=== PATIENT | female | born 1950 | race Caucasian/White ===

== ENCOUNTER → 2016-11-23 | Outpatient (CLI) | payer BC, OTHER ==
[~2016-11-23] MED LIST: AMIT10TA2 OR; ATEN100T OR; HYDR25TA6 OR; NAPR500T OR; SKEL800T5 OR; TRAM50TA2 OR; VASO20TA OR; VOLT1GEL TOP
--- NOTE | 2016-11-25 01:25 | ECWPNPC ---
PATIENT NAME: ALFONSO MAR : 1950 GENDER: FEMALE VISIT DATE: 11/23/2016 DISCHARGE DATE: 11/23/16 0956 VISIT LOCKED DATE TIME: PHYSICIAN: INGRID LANDRY RESOURCE: INGRID LANDRY REASON FOR APPOINTMENT 1. F/U LEFT SHOULDER HISTORY OF PRESENT ILLNESS HISTORY OF PRESENT ILLNESS: PAIN THE PATIENT DESCRIBES THE PAIN... FALL RISK SCREENING: SCREENING :NO FALLS IN THE PAST YEAR TODAY'S VISIT: PAIN LOCATED NECK L>R.PAIN AGGREVATED BY LIFTING AND PROLONGED SITTING. FINDS CURRENT MEDICATION HELPFUL W OUT SIDE EFFECTS.VAS 3/10.CURRENT MEDICINE FOR CHRONIC PAIN IS SKELAXIN 800MG TID,AMITRIPTYLINE 25MG AT HS AND TRAMADOL 50MG ONE TAB Q4HR PRN W MDD6.FINDS CURRENT REGIMEN EFFECTIVE AT REDUCING PAIN AND KEEPING HE COMFORTABLE.DENIES SIDE EFFECTS. CURRENT MEDICATIONS TAKING HYDROCHLOROTHIAZIDE 25 MG TABLET 1 TABLET ORALLY ONCE A DAY TAKING ATENOLOL 50 50MG TABLET ORAL BID TAKING TRAMADOL HCL 50 MG TABLET 1 TABLET NEEDED ORALLY EVERY 6 HRSMDD4 TAKING METAXALONE 800 MG TABLET 1 TABLET ORALLY THREE TIMES A DAY TAKING AMITRIPTYLINE HCL 25 MG TABLET 1 TABLET ORALLY QHS TAKING VITAMIN D 1000 UNIT TABLET 5 TABLET ORALLY ONCE A DAY MEDICATION LIST REVIEWED AND RECONCILED WITH THE PATIENT ALLERGIES LIDOCAINE: RAPID HEARTBEAT: SIDE EFFECTS LYRICA: MENTAL CONFUSION: SIDE EFFECTS SOCIAL HISTORY GENERAL: TOBACCO USE ARE YOU A:NONSMOKER LEARNING BARRIERS / SPECIAL NEEDS ORIENTED TO PLAN OF CARE: PATIENT, PAIN MANAGEMENT PATIENT, ORIENTED TO PLAN OF CARE: PATIENT, PAIN MANAGEMENT PATIENT. NEW PATIENT PAIN DIARY TODAY'S VISITNOTES FROM 0-10, WHAT LEVEL IS YOUR PAIN TODAY?0 PAIN CLINIC PFS, CLERGY, PUBLIC HEALTH REFERRALS PFS REFERRAL NEEDED?NO CLERGY REFERRAL NEEDED?NO PUBLIC HEALTH REFERRAL NEEDED?NO WAS THE PROVIDER NOTIFIED OF ANY PERTINENT INFO?NO PFS REFERRAL NEEDED?NO CLERGY REFERRAL NEEDED?NO PUBLIC HEALTH REFERRAL NEEDED?NO WAS THE PROVIDER NOTIFIED OF ANY PERTINENT INFO?NO REVIEW OF SYSTEMS CONSTITUTIONAL: ANY CHANGE IN YOUR MEDICAL CONDITION? NO . CHILLS NO . FEVER NO . INFECTION: DO YOU HAVE NEW INFECTIONS? NO . DO YOU HAVE HISTORY OF MRSA? NO . MUSCULOSKELETAL: ANY NEW PATTERNS OF PAIN OR NUMBNESS? NO . GASTROENTEROLOGY: ANY NEW CHANGE IN BOWEL CONTROL? NO . GENITOURINARY: ANY NEW CHANGE IN BLADDER CONTROL? NO . IS THERE A CHANCE YOU COULD BE ? NO . HEMATOLOGY/LYMPH: DO YOU TAKE ANY BLOOD THINNERS? (FOR EXAMPLE- COUMADIN, PLAVIX, AGGRENOX, PLATEL, PRADAXA, OR XARELTO) NO . WHEN WAS YOUR LAST DOSE? DATE: TIME: . NEUROLOGY: HAVE YOU FALLEN IN THE PAST 6 MONTHS? NO . ANY NEW EXTREMITY NUMBNESS OR WEAKNESS? NO . CARDIOLOGY: DO YOU HAVE A PACEMAKER OR DEFIBRILLATOR? NO . RESPIRATORY: HAVE YOU BEEN SICK IN THE PAST WEEK? NO . FEVER NO . FLU LIKE SYMPTOMS? NO . COUGH NO . INTEGUMENTARY: DO YOU HAVE ANY RASHES OR OPEN SORES? NO . ALLERGIC/IMMUNO: ARE YOU ALLERGIC TO SHELLFISH OR IV DYE? NO . ANY NEW ALLERGIES? NO . PSYCHIATRIC: DO YOU HAVE THOUGHTS OF HURTING YOURSELF OR SOMEONE ELSE? NO . ARE YOU ABUSED, NEGLECTED, OR IN AN UNSAFE ENVIRONMENT? NO . ENDOCRINOLOGY: ARE YOU DIABETIC? NO . OTHER: DO YOU NEED ANY PRESCRIPTIONS? NO . IF YES, PLEASE LIST: ____ . ANY NEW PROBLEMS WITH YOUR MEDICATIONS? NO . WHEN DID YOU LAST EAT? ____ . WHEN DID YOU LAST DRINK? ____ . WHAT DID YOU LAST DRINK? ____ . NAME OF PERSON DRIVING YOU HOME? ____ . DO YOU HAVE ANY OTHER QUESTIONS OR CONCERNS NO . REVIEWED BY: PROVIDER: INGRID RESENDIZ . VITAL SIGNS WT 157 LBS, HT 64 IN, BMI 26.95 INDEX, BP 132/73 MM HG, HR 61 /MIN, RR 16 /MIN, TEMP 97.3 F, OXYGEN SAT % 98, NA INITIALS TL 0901, REVIEWED BY: KG. EXAMINATION GENERAL EXAMINATION: LUNGS:LUNG SOUNDS ARE CLEAR. HEART:HEART RATE REGULAR. MUSCULOSKELETAL:*. CERVICAL SPINE: PALPATION:NON-TENDER. RANGE OF MOTION:FULL RANGE OF MOTION. SENSORY EXAM UPPER EXTREMITIES:NORMAL BILATERALLY. ASSESSMENTS CERVICALGIA - M54.2 (PRIMARY) POST LAMINECTOMY SYNDROME - M96.1 TREATMENT CERVICALGIA CONTINUE TRAMADOL HCL TABLET, 50 MG, 1 TABLET NEEDED, ORALLY, EVERY 6 HRSMDD4 CONTINUE METAXALONE TABLET, 800 MG, 1 TABLET, ORALLY, THREE TIMES A DAY REFILL AMITRIPTYLINE HCL TABLET, 25 MG, 1 TABLET, ORALLY, QHS, 90 DAYS, 90, REFILLS 1 PROCEDURE CODES FA211 ESTABILISHED PATIENT [facility] CHARGE FOLLOW UP 3 MONTHS ELECTRONICALLY SIGNED BY ASTRID ARIZA ON 11/23/2016 AT 10:02 AM EST DISCLAIMER : THIS IS A VISIT SUMMARY EXTRACTED FROM THE [employer] CHART. IT IS NOT A COPY OF THE [employer] PROGRESS NOTE. PAULY
== END ==
LOC: M PAIN 09:20
PROVIDERS: ATTEND Nurse Practitioner Family
DX: M54.2 Cervicalgia (principal); M96.1 Postlaminectomy syndrome, not elsewhere classified; Z79.891 Long term (current) use of opiate analgesic; Z79.899 Other long term (current) drug therapy; Z88.8 Allergy status to other drugs, medicaments and biological substances

== ENCOUNTER → 2017-03-01 | Outpatient (CLI) | payer BC, OTHER | LOC: M PAIN 09:00 | PROVIDERS: ATTEND Nurse Practitioner Family | DX: G89.29 Other chronic pain (principal); M54.2 Cervicalgia; M96.1 Postlaminectomy syndrome, not elsewhere classified; I10 Essential (primary) hypertension; Z88.8 Allergy status to other drugs, medicaments and biological substances; Z79.899 Other long term (current) drug therapy ==

== ENCOUNTER → 2017-06-08 | Outpatient (CLI) | payer BC, OTHER ==
--- NOTE | 2017-06-12 23:32 | ECWPNPC ---
PATIENT NAME: ALFONSO MAR : 1950 GENDER: FEMALE VISIT DATE: 06/08/2017 DISCHARGE DATE: 06/08/17928 VISIT LOCKED DATE TIME: PHYSICIAN: INGRID LANDRY RESOURCE: INGRID LANDRY REASON FOR APPOINTMENT 1. BACK/NECK HISTORY OF PRESENT ILLNESS HISTORY OF PRESENT ILLNESS: PAIN THE PATIENT DESCRIBES THE PAIN... FALL RISK SCREENING: SCREENING :NO FALLS IN THE PAST YEAR TODAY'S VISIT: PAIN LOCATED NECK L>R.PAIN AGGREVATED BY LIFTING AND PROLONGED SITTING. FINDS CURRENT MEDICATION HELPFUL W OUT SIDE EFFECTS.VAS 3/10.CURRENT MEDICINE FOR CHRONIC PAIN IS SKELAXIN 800MG TID,AMITRIPTYLINE 25MG AT HS AND TRAMADOL 50MG ONE TAB Q4HR PRN W MDD6.USUALLY USING 3-4 TAB.TRAMADOL PER DAY. CURRENT MEDICATIONS TAKING HYDROCHLOROTHIAZIDE 25 MG TABLET 1 TABLET ORALLY ONCE A DAY TAKING ATENOLOL 50 50MG TABLET ORAL BID TAKING VITAMIN D 1000 UNIT TABLET 1 TAB ORALLY ONCE A DAY TAKING METAXALONE 800 MG TABLET 1 TABLET ORALLY THREE TIMES A DAY TAKING AMITRIPTYLINE HCL 25 MG TABLET 1 TABLET ORALLY QHS TAKING TRAMADOL HCL 50 MG TABLET 1 TABLET NEEDED ORALLY EVERY 6 HRSMDD4 MEDICATION LIST REVIEWED AND RECONCILED WITH THE PATIENT PAST MEDICAL HISTORY HTN LEFT SHOULDER PAIN BACK PAIN ALLERGIES LIDOCAINE: RAPID HEARTBEAT: SIDE EFFECTS LYRICA: MENTAL CONFUSION: SIDE EFFECTS SOCIAL HISTORY GENERAL: SABIANISM [id number] [facility] PFS, CLERGY, PUBLIC HEALTH REFERRALS PFS REFERRAL NEEDED?NO CLERGY REFERRAL NEEDED?NO PUBLIC HEALTH REFERRAL NEEDED?NO WAS THE PROVIDER NOTIFIED OF ANY PERTINENT INFO?NO HAS THE PATIENT BEEN EDUCATED REGARDING HIS/HER PLAN OF CARE?YES HAS THE PATIENT BEEN EDUCATED REGARDING PAIN, THE RISK FOR PAIN, THE IMPORTANCE OF EFFECTIVE PAIN MANAGEMENT, AND THE PAIN ASSESSMENT PROCESS?YES PATIENT: ____. ADVANCE DIRECTIVES HEALTH CARE PROXY?NO WOULD YOU LIKE MORE INFORMATION?NO DO YOU HAVE A DNR?NO WOULD YOU LIKE MORE INFORMATION?NO LIVING WILL?NO WOULD YOU LIKE MORE INFORMATION?NO POWER OF FOREST LOGISTICS MANAGER?YES NAME OF POA? CARLOS WASHINGTON PHONE # OF POA? [phone] DO YOU HAVE A COPY WITH YOU?NO HAVE YOU HAD A COPY OF ANY ADVANCED DIRECTIVE (LISTED ABOVE) ON A PREVIOUS MEDICAL RECORDS AT [facility]?NO REVIEW OF SYSTEMS REVIEWED BY: PROVIDER: INGRID RESENDIZ . CONSTITUTIONAL: ANY CHANGE IN YOUR MEDICAL CONDITION? NO . CHILLS NO . FEVER NO . INFECTION: DO YOU HAVE NEW INFECTIONS? NO . DO YOU HAVE HISTORY OF MRSA? NO . MUSCULOSKELETAL: ANY NEW PATTERNS OF PAIN OR NUMBNESS? NO . GASTROENTEROLOGY: ANY NEW CHANGE IN BOWEL CONTROL? NO . GENITOURINARY: ANY NEW CHANGE IN BLADDER CONTROL? NO . IS THERE A CHANCE YOU COULD BE ? NO . HEMATOLOGY/LYMPH: DO YOU TAKE ANY BLOOD THINNERS? (FOR EXAMPLE- COUMADIN, PLAVIX, AGGRENOX, PLATEL, PRADAXA, OR XARELTO) NO . WHEN WAS YOUR LAST DOSE? DATE: TIME: . NEUROLOGY: HAVE YOU FALLEN IN THE PAST 6 MONTHS? NO . ANY NEW EXTREMITY NUMBNESS OR WEAKNESS? NO . CARDIOLOGY: DO YOU HAVE A PACEMAKER OR DEFIBRILLATOR? NO . RESPIRATORY: HAVE YOU BEEN SICK IN THE PAST WEEK? NO . FEVER NO . FLU LIKE SYMPTOMS? NO . COUGH NO . INTEGUMENTARY: DO YOU HAVE ANY RASHES OR OPEN SORES? NO . ALLERGIC/IMMUNO: ARE YOU ALLERGIC TO SHELLFISH OR IV DYE? NO . ANY NEW ALLERGIES? NO . PSYCHIATRIC: DO YOU HAVE THOUGHTS OF HURTING YOURSELF OR SOMEONE ELSE? NO . ARE YOU ABUSED, NEGLECTED, OR IN AN UNSAFE ENVIRONMENT? NO . ENDOCRINOLOGY: ARE YOU DIABETIC? NO . OTHER: DO YOU NEED ANY PRESCRIPTIONS? YES . IF YES, PLEASE LIST: SKELAXIN . ANY NEW PROBLEMS WITH YOUR MEDICATIONS? NO . WHEN DID YOU LAST EAT? ____ . WHEN DID YOU LAST DRINK? ____ . WHAT DID YOU LAST DRINK? ____ . NAME OF PERSON DRIVING YOU HOME? ____ . DO YOU HAVE ANY OTHER QUESTIONS OR CONCERNS NO . VITAL SIGNS WT 160 LBS, HT 64 IN, BMI 27.46 INDEX, BP 133/69 MM HG, HR 57 /MIN, RR 16 /MIN, TEMP 97.8 F, OXYGEN SAT % 96%, NA INITIALS [id number], REVIEWED BY: CS. EXAMINATION GENERAL EXAMINATION: LUNGS:LUNG SOUNDS ARE CLEAR. HEART:HEART RATE REGULAR. MUSCULOSKELETAL:*. CERVICAL SPINE: PALPATION:NON-TENDER. RANGE OF MOTION:FULL RANGE OF MOTION. SENSORY EXAM UPPER EXTREMITIES:NORMAL BILATERALLY. ASSESSMENTS CERVICALGIA - M54.2 (PRIMARY) POST LAMINECTOMY SYNDROME - M96.1 TREATMENT CERVICALGIA REFILL METAXALONE TABLET, 800 MG, 1 TABLET, ORALLY, THREE TIMES A DAY, 30 DAY(S), 90 TABLET, REFILLS 2 CONTINUE AMITRIPTYLINE HCL TABLET, 25 MG, 1 TABLET, ORALLY, QHS CONTINUE TRAMADOL HCL TABLET, 50 MG, 1 TABLET NEEDED, ORALLY, EVERY 6 HRSMDD4 PROCEDURE CODES FA211 ESTABILISHED PATIENT [facility] CHARGE DISPOSITION & COMMUNICATION FOLLOW UP 3 MONTHS ELECTRONICALLY SIGNED BY ASTRID ARIZA ON 06/08/2017 AT 01:31 PM EDT DISCLAIMER : THIS IS A VISIT SUMMARY EXTRACTED FROM THE [employer] CHART. IT IS NOT A COPY OF THE [employer] PROGRESS NOTE. PAULY
== END ==
LOC: M PAIN 09:00
PROVIDERS: ATTEND Nurse Practitioner Family
DX: M96.1 Postlaminectomy syndrome, not elsewhere classified (principal); M54.2 Cervicalgia; I10 Essential (primary) hypertension; Z88.8 Allergy status to other drugs, medicaments and biological substances; Z79.899 Other long term (current) drug therapy

== ENCOUNTER → 2017-12-09 | Outpatient (CLI) | payer MEDICARE, BC, OTHER | LOC: M PAIN 09:30 | DX: G89.29 Other chronic pain (principal); M54.2 Cervicalgia; M96.1 Postlaminectomy syndrome, not elsewhere classified; I10 Essential (primary) hypertension; M25.512 Pain in left shoulder; Z87.891 Personal history of nicotine dependence; Z79.899 Other long term (current) drug therapy; Z88.8 Allergy status to other drugs, medicaments and biological substances | CPT/HCPCS: G0463 ==

== ENCOUNTER → 2018-03-08 | Outpatient (CLI) | payer MEDICARE, BC, OTHER | LOC: M PAIN 09:00 | DX: G89.29 Other chronic pain (principal); M54.2 Cervicalgia; M96.1 Postlaminectomy syndrome, not elsewhere classified; I10 Essential (primary) hypertension; M25.511 Pain in right shoulder; Z98.1 Arthrodesis status; Z88.6 Allergy status to analgesic agent | CPT/HCPCS: G0463 ==

== ENCOUNTER → 2018-06-08 | Outpatient (CLI) | payer MEDICARE, BC, OTHER | LOC: M PAIN 09:00 | DX: M54.2 Cervicalgia (principal); M96.1 Postlaminectomy syndrome, not elsewhere classified; I10 Essential (primary) hypertension; Z79.899 Other long term (current) drug therapy; Z88.8 Allergy status to other drugs, medicaments and biological substances | CPT/HCPCS: G0463 ==

== ENCOUNTER → 2018-09-08 | Outpatient (CLI) | payer MEDICARE, BC, OTHER | LOC: M PAIN 09:00 | DX: M54.2 Cervicalgia (principal); M96.1 Postlaminectomy syndrome, not elsewhere classified; I10 Essential (primary) hypertension; Z79.899 Other long term (current) drug therapy; Z88.8 Allergy status to other drugs, medicaments and biological substances | CPT/HCPCS: G0463 ==

== ENCOUNTER → 2019-02-08 | Outpatient (CLI) | payer MEDICARE, BC, OTHER ==
--- NOTE | 2019-02-23 00:42 | ECWPNPC ---
PATIENT NAME: ALFONSO MAR : 1950 GENDER: FEMALE VISIT DATE: 02/08/2019 DISCHARGE DATE: 02/08/19 1144 VISIT LOCKED DATE TIME: PHYSICIAN: INGRID LANDRY RESOURCE: INGRID LANDRY REASON FOR APPOINTMENT 1. NECK/BACK HISTORY OF PRESENT ILLNESS HISTORY OF PRESENT ILLNESS: PAIN THE PATIENT DESCRIBES THE PAIN... FALL RISK SCREENING: SCREENING :NO FALLS REPORTED IN THE LAST YEAR TODAY'S VISIT: PAIN LOCATED NECK L>R.PAIN AGGREVATED BY LIFTING AND PROLONGED SITTING. FINDS CURRENT MEDICATION HELPFUL W OUT SIDE EFFECTS.VAS 2/10.CURRENT MEDICINE FOR CHRONIC PAIN IS SKELAXIN 800MG TID,AMITRIPTYLINE 25MG AT HS AND TRAMADOL 50MG ONE TAB Q4HR PRN W MDD6.USUALLY USING 3-4 TAB.TRAMADOL PER DAY. CURRENT MEDICATIONS TAKING HYDROCHLOROTHIAZIDE 25 MG TABLET 1 TABLET ORALLY ONCE A DAY TAKING ATENOLOL 50 50MG TABLET ORAL BID TAKING VITAMIN D 1000 UNIT TABLET TAKES 5000 UNITS ORALLY ONCE A DAY TAKING BIOTIN 5 MG CAPSULE 1 CAPSULE ORALLY ONCE A DAY TAKING METAXALONE 800 MG TABLET 1 TABLET ORALLY THREE TIMES A DAY TAKING AMITRIPTYLINE HCL 50 MG TABLET 1 TABLET ORALLY QHS TAKING TRAMADOL HCL 50 MG TABLET 1 TABLET NEEDED ORALLY EVERY 6 HRSMDD4 90 DAY SUPPLY CATD CHRONIC PAIN MEDICATION LIST REVIEWED AND RECONCILED WITH THE PATIENT PAST MEDICAL HISTORY HTN LEFT SHOULDER PAIN BACK PAIN ALLERGIES LIDOCAINE: RAPID HEARTBEAT - SIDE EFFECTS LYRICA: MENTAL CONFUSION - SIDE EFFECTS SURGICAL HISTORY SPINAL FUSION WRIST SURGERY - RELEASE 09/2018 FAMILY HISTORY FATHER: , DIAGNOSED WITH STROKE MOTHER: , OTHER 1 BROTHER(S) , 4 SISTER(S) . 1 SON(S) , 1 DAUGHTER(S) - HEALTHY. MOTHER - HIP REPLACEMENTSISTER - BREAST CANCER. SOCIAL HISTORY GENERAL: TOBACCO USE ARE YOU A:NONSMOKER LATEX QUESTIONNAIRE LATEX ALLERGY : HAVE YOU EVER DEVELOPED ANY TYPE OF REACTION AFTER HANDLING LATEX PRODUCTS SUCH RUBBER GLOVES, CONDOMS, DIAPHRAGMS, BALLOONS, SOCKS, OR UNDERWEAR?NO LATEX ALLERGY : HAVE YOU EVER DEVELOPED ANY TYPE OF REACTION DURING OR AFTER DENTAL APPOINTMENT, VAGINAL/RECTAL EXAMINATION, SURGICAL PROCEDURE, OR ANY OTHER EXPOSURE?NO LATEX RISK : HAVE YOU EVER HAD ANY DIFFICULTY BREATHING OR HIVES AFTER EATING OR HANDLING ANY FRUITS, OR VEGETABLES; SUCH KIWI, BANANAS, STONE FRUITS, OR CHESTNUTSNO LATEX RISK : DO YOU HAVE A PREVIOUS PERSONAL HISTORY OF MORE THAN NINE SURGERIES, SPINA BIFIDA, OR REPEATED CATHERTIZATIONS? NO LATEX RISK : ARE YOU FREQUENTLY EXPOSED TO LATEX PRODUCTS IN YOUR OCCUPATION?NO DATE ASKED : 02/08/2019 ALCOHOL SCREENING DID YOU HAVE A DRINK CONTAINING ALCOHOL IN THE PAST YEAR?YES HOW OFTEN DID YOU HAVE A DRINK CONTAINING ALCOHOL IN THE PAST YEAR?MONTHLY OR LESS (1 POINT) HOW MANY DRINKS DID YOU HAVE ON A TYPICAL DAY WHEN YOU WERE DRINKING IN THE PAST YEAR?1 OR 2 (0 POINTS) HOW OFTEN DID YOU HAVE SIX OR MORE DRINKS ON ONE OCCASION IN THE PAST YEAR?NEVER (0 POINTS) POINTS1 INTERPRETATIONNEGATIVE RECREATIONAL DRUG USE DRUG USE?NO CAODAISM [id number] [employer]ITH LANGUAGE LANGUAGES SPOKEN:BULGARIAN LEARNING BARRIERS / SPECIAL NEEDS CHANGE FROM LAST VISIT?NO BARRIERS TO LEARNING?NO HEARING IMPAIRED?NO VISION IMPAIRED?YES :CORRECTIVE LENSES COGNITIVELY IMPAIRED?NO READINESS TO LEARN?YES LEARNING PREFERENCES?NO LEARNING CAPABILITIES PRESENT?YES EMOTIONAL BARRIERS?NO SPECIAL DEVICES?NO BODY AND FRAME MAN NEEDED?NO OCCUPATION: RETIRED. DIET: REGULAR. EXERCISE: TRIES TO BE ACTIVE.. PAIN CLINIC PFS, CLERGY, PUBLIC HEALTH REFERRALS PFS REFERRAL NEEDED?NO CLERGY REFERRAL NEEDED?NO PUBLIC HEALTH REFERRAL NEEDED?NO WAS THE PROVIDER NOTIFIED OF ANY PERTINENT INFO?NO HAS THE PATIENT BEEN EDUCATED REGARDING HIS/HER PLAN OF CARE?YES HAS THE PATIENT BEEN EDUCATED REGARDING PAIN, THE RISK FOR PAIN, THE IMPORTANCE OF EFFECTIVE PAIN MANAGEMENT, AND THE PAIN ASSESSMENT PROCESS?YES ADVANCE DIRECTIVE ADVANCE DIRECTIVE DISCUSSED WITH PATIENT:YES HCP - CARLOS WASHINGTON (DAUGHTER) REVIEWED WITH PT 09/08/18 5432 BVREVIEWED WITH PATIENT 02/08/19 4502 JS. HOSPITALIZATION/MAJOR DIAGNOSTIC PROCEDURE SURGERY RELATED REVIEW OF SYSTEMS REVIEWED BY: PROVIDER: INGRID RESENDIZ . CONSTITUTIONAL: ANY CHANGE IN YOUR MEDICAL CONDITION? NO . CHILLS NO . FEVER NO . INFECTION: DO YOU HAVE NEW INFECTIONS? NO . DO YOU HAVE HISTORY OF MRSA? NO . MUSCULOSKELETAL: ANY NEW PATTERNS OF PAIN OR NUMBNESS? NO . GASTROENTEROLOGY: ANY NEW CHANGE IN BOWEL CONTROL? NO . GENITOURINARY: ANY NEW CHANGE IN BLADDER CONTROL? NO . IS THERE A CHANCE YOU COULD BE ? NO . HEMATOLOGY/LYMPH: DO YOU TAKE ANY BLOOD THINNERS? (FOR EXAMPLE- COUMADIN, PLAVIX, AGGRENOX, PLATEL, PRADAXA, OR XARELTO) NO . WHEN WAS YOUR LAST DOSE? DATE: TIME: . NEUROLOGY: HAVE YOU FALLEN IN THE PAST 12 MONTHS? YES, STATES FALL IN DECEMBER, SLIPPED ON THE ICE, FELL ON KNEES, KNEES STILL SORE. STATES NO ED VISIT, NO IMAGING . ANY NEW EXTREMITY NUMBNESS OR WEAKNESS? NO . CARDIOLOGY: DO YOU HAVE A PACEMAKER OR DEFIBRILLATOR? NO . RESPIRATORY: HAVE YOU BEEN SICK IN THE PAST WEEK? NO . FEVER NO . FLU LIKE SYMPTOMS? NO . COUGH NO . INTEGUMENTARY: DO YOU HAVE ANY RASHES OR OPEN SORES? NO . ALLERGIC/IMMUNO: ARE YOU ALLERGIC TO IV DYE? NO . ANY NEW ALLERGIES? NO . PSYCHIATRIC: DO YOU HAVE THOUGHTS OF HURTING YOURSELF OR SOMEONE ELSE? NO . ARE YOU ABUSED, NEGLECTED, OR IN AN UNSAFE ENVIRONMENT? NO . ENDOCRINOLOGY: ARE YOU DIABETIC? NO . OTHER: DO YOU NEED ANY PRESCRIPTIONS? YES . IF YES, PLEASE LIST: ____METAXALONE . ANY NEW PROBLEMS WITH YOUR MEDICATIONS? NO . WHEN DID YOU LAST EAT? ____ . WHEN DID YOU LAST DRINK? ____ . WHAT DID YOU LAST DRINK? ____ . NAME OF PERSON DRIVING YOU HOME? ____ . DO YOU HAVE ANY OTHER QUESTIONS OR CONCERNS NO . VITAL SIGNS WT 174.0 LBS, HT 64 IN, BMI 29.86 INDEX, BP 119/66 MM HG, HR 65 /MIN, RR 18 /MIN, TEMP 97.5 F, OXYGEN SAT % 93%, SAFE IN ENV? (Y/N) YES, NA INITIALS AW 1051, REVIEWED BY: DEBBIE. EXAMINATION GENERAL EXAMINATION: LUNGS:LUNG SOUNDS ARE CLEAR. HEART:HEART RATE REGULAR. MUSCULOSKELETAL:*. CERVICAL SPINE: PALPATION:NON-TENDER. RANGE OF MOTION:FULL RANGE OF MOTION. SENSORY EXAM UPPER EXTREMITIES:NORMAL BILATERALLY. ASSESSMENTS CERVICALGIA - M54.2 (PRIMARY) POST LAMINECTOMY SYNDROME - M96.1 TREATMENT CERVICALGIA REFILL METAXALONE TABLET, 800 MG, 1 TABLET, ORALLY, THREE TIMES A DAY, 90 DAY(S), 270 TABLET, REFILLS 0 CONTINUE AMITRIPTYLINE HCL TABLET, 50 MG, 1 TABLET, ORALLY, QHS CONTINUE TRAMADOL HCL TABLET, 50 MG, 1 TABLET NEEDED, ORALLY, EVERY 6 HRSMDD4 90 DAY SUPPLY CATD CHRONIC PAIN NOTES: ISTOP REGISTRY REVIEWED AND DEMONSTRATES COMPLLIANCE. (REF # [id number] ) BRINGS IN MEDICATIONS WHICH IS APPROPRIATE FOR WHAT WAS DISPENSED. RECENT URINE TOXICOLOGY REVIEWED. NO UNAUTHORIZED MEDICATIONS. NO ILLICIT SUBSTANCES AND PRESCRIBED MEDICATIONS WERE PRESENT. URINE TOX TODAY, RISKS AND BENEFITS OF NARCOTIC/OPIOD MEDICATIONS WERE REVIEWED WITH PATIENT - THIS INCLUDES BUT IS NOT LIMITED TO RISK OF DEPENDANCE/DEVELOPMENT OF ADDICTION, MOOD DISTURBANCE AND DEPRESSION, OSTEOPOROSIS, HORMONAL AND LABIDAL CHANGES, RESPIRATORY DEPRESSION AND . PATIENT IS ADVISED NOT TO DRIVE OR DRINK ALCOHOL WHILE ON THESE MEDICATIONS, [facility] NARCOTIC AGREEMENT WAS REVIEWED AND SIGNED TODAY BY THE PATIENT. SEE ATTACHED DOCUMENT FOR FULL DETAILS; SPECIFIC ISSUES WERE REVIEWED: 1) KEEP PAIN MEDS IN THEIR ORIGINAL BOTTLES AND ANY WEEKLY PLANNERS ARE TO BE BROUGHT TO THE PAIN CENTER AT EVERY VISIT. 2) THE PATIENT IS NOT TO INCREASE DOSING OR TIMING OF THEIR PAIN MEDICATION WITHOUT SPECIFIC DIRECTION OF THEIR PAIN CENTERPROVIDER (NOT ER OR OTHER PROVIDERS). 3) ALL PAIN MEDS ARE TO BE KEPT SECURED, IN A LOCKED BOX. 4) NO PAIN MEDS ARE TO BE SHARED WITH ANY OTHER PERSON FOR ANY REASON. 5) NO PAIN MEDS MAY BE TAKEN FROM ANY FRIENDS OR RELATIVES FOR ANY REASON 6) NO MEDS OR SUBSTANCES WHICH ARE NOT LEGAL ARE TO BE USED- NO MARIJUANA, NO COCAINE, AMPHETAMINES, HEROIN, OR OTHERS ARE EVER TO BE USED. 7)URINE TESTING IS DONE TO ACCOUNT FOR MEDS AND SUBSTANCES BEING TAKEN AND WILL BE DONE RANDOMLY. PROCEDURE CODES FA211 ESTABILISHED PATIENT [facility]AC[facility] CHARGE DISPOSITION & COMMUNICATION FOLLOW UP 3 MONTHS ELECTRONICALLY SIGNED BY ASTRID BRUCE ON 02/22/2019 AT 03:21 PM EDT DISCLAIMER : THIS IS A VISIT SUMMARY EXTRACTED FROM THE [employer] CHART. IT IS NOT A COPY OF THE [employer] PROGRESS NOTE. PAULY
== END ==
LOC: M PAIN 10:30
PROVIDERS: ATTEND Nurse Practitioner Family
DX: M54.2 Cervicalgia (principal); M96.1 Postlaminectomy syndrome, not elsewhere classified; I10 Essential (primary) hypertension; Z88.4 Allergy status to anesthetic agent; Z88.8 Allergy status to other drugs, medicaments and biological substances; Z79.899 Other long term (current) drug therapy

== ENCOUNTER → 2019-05-15 | Outpatient (CLI) | payer MEDICARE, BC, OTHER ==
--- NOTE | 2019-05-27 00:54 | ECWPNPC ---
PATIENT NAME: ALFONSO MAR : 1950 GENDER: FEMALE VISIT DATE: 05/15/2019 DISCHARGE DATE: 05/15/19 1019 VISIT LOCKED DATE TIME: PHYSICIAN: INGRID LANDRY RESOURCE: INGRID LANDRY REASON FOR APPOINTMENT 1. NECK/BACK HISTORY OF PRESENT ILLNESS HISTORY OF PRESENT ILLNESS: PAIN THE PATIENT DESCRIBES THE PAIN... FALL RISK SCREENING: SCREENING :NO FALLS REPORTED IN THE LAST YEAR TODAY'S VISIT: PAIN LOCATED NECK L>R.PAIN AGGREVATED BY LIFTING AND PROLONGED SITTING. FINDS CURRENT MEDICATION HELPFUL W OUT SIDE EFFECTS.VAS 10.CURRENT MEDICINE FOR CHRONIC PAIN IS SKELAXIN 800MG TID,AMITRIPTYLINE 25MG AT HS AND TRAMADOL 50MG ONE TAB Q4HR PRN W MDD6.USUALLY USING 3-4 TAB.TRAMADOL PER DAY. CURRENT MEDICATIONS TAKING HYDROCHLOROTHIAZIDE 25 MG TABLET 1 TABLET ORALLY ONCE A DAY TAKING ATENOLOL 50 50MG TABLET ORAL BID TAKING VITAMIN D _ TABLET 5000 UNITS ORALLY ONCE A DAY TAKING BIOTIN 5 MG CAPSULE 1 CAPSULE ORALLY ONCE A DAY TAKING METAXALONE 800 MG TABLET 1 TABLET ORALLY THREE TIMES A DAY TAKING AMITRIPTYLINE HCL 50 MG TABLET 1 TABLET ORALLY QHS TAKING TRAMADOL HCL 50 MG TABLET 1 TABLET NEEDED ORALLY FOR PAIN EVERY 6 HOURS NEEDED MDD4 TAKING NAPROXEN 500 MG TABLET 1 TAB ORALLY EVERY 12 HRS MEDICATION LIST REVIEWED AND RECONCILED WITH THE PATIENT PAST MEDICAL HISTORY HTN LEFT SHOULDER PAIN BACK PAIN SCIATIC RIGHT LEG VIT D DEF. ALLERGIES LIDOCAINE: RAPID HEARTBEAT - SIDE EFFECTS LYRICA: MENTAL CONFUSION - SIDE EFFECTS SURGICAL HISTORY SPINAL FUSION WRIST SURGERY - RELEASE-LEFT 09/2018 FAMILY HISTORY FATHER: , DIAGNOSED WITH STROKE MOTHER: , ARTHRITIS, OTHER SIBLINGS: BROTHER-ALZHEIMERS, ARTHRITIS HIP 1 BROTHER(S) , 4 SISTER(S) . 1 SON(S) , 1 DAUGHTER(S) - HEALTHY. MOTHER - HIP REPLACEMENTSISTER - BREAST CANCER, BOTH SISTERS-ARTHRITIS. SOCIAL HISTORY GENERAL: TOBACCO USE ARE YOU A:NONSMOKER EDUCATION LEVEL OF EDUCATION:FINISHED [employer] DEGREE DIET: REGULAR. LANGUAGE LANGUAGES SPOKEN:DANISH DOMESTIC VIOLENCE DO YOU FEEL SAFE IN YOUR ENVIRONMENT?YES RECREATIONAL DRUG USE DRUG USE?NO EXERCISE: TRIES TO BE ACTIVE.. 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 N/A HAS THE PATIENT BEEN EDUCATED REGARDING HIS/HER PLAN OF CARE?YES HAS THE PATIENT BEEN EDUCATED REGARDING PAIN, THE RISK FOR PAIN, THE IMPORTANCE OF EFFECTIVE PAIN MANAGEMENT, AND THE PAIN ASSESSMENT PROCESS?YES LATEX QUESTIONNAIRE LATEX ALLERGY : HAVE YOU EVER DEVELOPED ANY TYPE OF REACTION AFTER HANDLING LATEX PRODUCTS SUCH RUBBER GLOVES, CONDOMS, DIAPHRAGMS, BALLOONS, SOCKS, OR UNDERWEAR?NO LATEX ALLERGY : HAVE YOU EVER DEVELOPED ANY TYPE OF REACTION DURING OR AFTER DENTAL APPOINTMENT, VAGINAL/RECTAL EXAMINATION, SURGICAL PROCEDURE, OR ANY OTHER EXPOSURE?NO LATEX RISK : HAVE YOU EVER HAD ANY DIFFICULTY BREATHING OR HIVES AFTER EATING OR HANDLING ANY FRUITS, OR VEGETABLES; SUCH KIWI, BANANAS, STONE FRUITS, OR CHESTNUTSNO LATEX RISK : DO YOU HAVE A PREVIOUS PERSONAL HISTORY OF MORE THAN NINE SURGERIES, SPINA BIFIDA, OR REPEATED CATHERIZATIONS? NO LATEX RISK : ARE YOU FREQUENTLY EXPOSED TO LATEX PRODUCTS IN YOUR OCCUPATION?NO DATE ASKED : 05/15/2019 CAFFEINE CAFFEINE USE?YES HOW OFTEN AND HOW MUCH? 1 CUP COFFEE/DAILY ADVANCE DIRECTIVE ADVANCE DIRECTIVE DISCUSSED WITH PATIENT:YES HCP - CARLOS WASHINGTON (DAUGHTER) CHUR[facility] [id number] [facility] ALCOHOL SCREENING DID YOU HAVE A DRINK CONTAINING ALCOHOL IN THE PAST YEAR?YES HOW OFTEN DID YOU HAVE A DRINK CONTAINING ALCOHOL IN THE PAST YEAR?MONTHLY OR LESS (1 POINT) HOW MANY DRINKS DID YOU HAVE ON A TYPICAL DAY WHEN YOU WERE DRINKING IN THE PAST YEAR?1 OR 2 (0 POINTS) HOW OFTEN DID YOU HAVE SIX OR MORE DRINKS ON ONE OCCASION IN THE PAST YEAR?NEVER (0 POINTS) POINTS1 INTERPRETATIONNEGATIVE OCCUPATION: RETIRED. REVIEWED WITH PT 09/08/18 0947 BVREVIEWED WITH PATIENT 02/08/19 1059 JS05/15/19 REVIEWED WITH PT. AD. HOSPITALIZATION/MAJOR DIAGNOSTIC PROCEDURE SURGERY RELATED CHILD REVIEW OF SYSTEMS REVIEWED BY: PROVIDER: INGRID RESENDIZ . CONSTITUTIONAL: ANY CHANGE IN YOUR MEDICAL CONDITION? YES, SCIATIC RIGHT LEG- STARTED ON NAPROXEN BY PCP . CHILLS NO . FEVER NO . INFECTION: DO YOU HAVE NEW INFECTIONS? NO . DO YOU HAVE HISTORY OF MRSA? NO . MUSCULOSKELETAL: ANY NEW PATTERNS OF PAIN OR NUMBNESS? YES, NUMBNESS RIGHT LEG X 2 MONTHS . GASTROENTEROLOGY: ANY NEW CHANGE IN BOWEL CONTROL? NO . GENITOURINARY: ANY NEW CHANGE IN BLADDER CONTROL? NO . IS THERE A CHANCE YOU COULD BE ? NO . HEMATOLOGY/LYMPH: DO YOU TAKE ANY BLOOD THINNERS? (FOR EXAMPLE- COUMADIN, PLAVIX, AGGRENOX, PLATEL, PRADAXA, OR XARELTO) NO . WHEN WAS YOUR LAST DOSE? DATE: TIME: . NEUROLOGY: HAVE YOU FALLEN IN THE PAST 12 MONTHS? YES, 2 X DUE TO ICE NO MAJOR INJURIES . ANY NEW EXTREMITY NUMBNESS OR WEAKNESS? YES, NUMBNESS RIGHT . CARDIOLOGY: DO YOU HAVE A PACEMAKER OR DEFIBRILLATOR? NO . RESPIRATORY: HAVE YOU BEEN SICK IN THE PAST WEEK? NO . FEVER NO . FLU LIKE SYMPTOMS? NO . COUGH NO . INTEGUMENTARY: DO YOU HAVE ANY RASHES OR OPEN SORES? NO . ALLERGIC/IMMUNO: ARE YOU ALLERGIC TO IV DYE? NO . ANY NEW ALLERGIES? NO . PSYCHIATRIC: DO YOU HAVE THOUGHTS OF HURTING YOURSELF OR SOMEONE ELSE? NO . ARE YOU ABUSED, NEGLECTED, OR IN AN UNSAFE ENVIRONMENT? NO . ENDOCRINOLOGY: ARE YOU DIABETIC? NO . OTHER: DO YOU NEED ANY PRESCRIPTIONS? NO . IF YES, PLEASE LIST: ____ . ANY NEW PROBLEMS WITH YOUR MEDICATIONS? NO . WHEN DID YOU LAST EAT? ____ . WHEN DID YOU LAST DRINK? ____ . WHAT DID YOU LAST DRINK? ____ . NAME OF PERSON DRIVING YOU HOME? ____ . DO YOU HAVE ANY OTHER QUESTIONS OR CONCERNS NO . VITAL SIGNS WT 172.4 LBS, HT 64 IN, BMI 29.59 INDEX, BP 153/74 MM HG, HR 73 /MIN, RR 18 /MIN, TEMP 97.7 F, OXYGEN SAT % 98%, SAFE IN ENV? (Y/N) Y, NA INITIALS AW 0911, REVIEWED BY: COMFORT. EXAMINATION GENERAL EXAMINATION: LUNGS:LUNG SOUNDS ARE CLEAR. HEART:HEART RATE REGULAR. MUSCULOSKELETAL:*. CERVICAL SPINE: PALPATION:NON-TENDER. RANGE OF MOTION:FULL RANGE OF MOTION. SENSORY EXAM UPPER EXTREMITIES:NORMAL BILATERALLY. ASSESSMENTS CERVICALGIA - M54.2 (PRIMARY) POST LAMINECTOMY SYNDROME - M96.1 TREATMENT CERVICALGIA CONTINUE METAXALONE TABLET, 800 MG, 1 TABLET, ORALLY, THREE TIMES A DAY CONTINUE AMITRIPTYLINE HCL TABLET, 50 MG, 1 TABLET, ORALLY, QHS CONTINUE TRAMADOL HCL TABLET, 50 MG, 1 TABLET NEEDED, ORALLY FOR PAIN, EVERY 6 HOURS NEEDED MDD4 DISPOSITION & COMMUNICATION FOLLOW UP 3 MONTHS ELECTRONICALLY SIGNED BY ASTRID BRUCE ON 05/26/2019 AT 03:50 PM EDT DISCLAIMER : THIS IS A VISIT SUMMARY EXTRACTED FROM THE [employer] CHART. IT IS NOT A COPY OF THE [employer] PROGRESS NOTE. KURTD
== END ==
LOC: M PAIN 09:15
PROVIDERS: ATTEND Nurse Practitioner Family
DX: M54.2 Cervicalgia (principal); M96.1 Postlaminectomy syndrome, not elsewhere classified; I10 Essential (primary) hypertension; M25.512 Pain in left shoulder; M54.32 Sciatica, left side; E55.9 Vitamin D deficiency, unspecified; Z98.1 Arthrodesis status; Z79.891 Long term (current) use of opiate analgesic; Z79.899 Other long term (current) drug therapy; Z79.1 Long term (current) use of non-steroidal anti-inflammatories (NSAID); Z88.8 Allergy status to other drugs, medicaments and biological substances

== ENCOUNTER → 2019-08-15 | Outpatient (CLI) | payer MEDICARE, BC, OTHER | LOC: M PAIN 09:00 | PROVIDERS: ATTEND Nurse Practitioner Family | DX: M54.2 Cervicalgia (principal); M96.1 Postlaminectomy syndrome, not elsewhere classified; I10 Essential (primary) hypertension; E55.9 Vitamin D deficiency, unspecified; Z88.4 Allergy status to anesthetic agent; Z88.8 Allergy status to other drugs, medicaments and biological substances; Z79.899 Other long term (current) drug therapy ==

== ENCOUNTER → 2019-11-16 | Outpatient (CLI) | payer MEDICARE, BC, OTHER ==
--- NOTE | 2019-11-29 06:33 | ECWPNPC ---
PATIENT NAME: ALFONSO MAR : 1950 GENDER: FEMALE VISIT DATE: 11/16/2019 DISCHARGE DATE: 11/16/19933 VISIT LOCKED DATE TIME: PHYSICIAN: INGRID LANDRY RESOURCE: INGRID LANDRY REASON FOR APPOINTMENT 1. NECK/BACK HISTORY OF PRESENT ILLNESS HISTORY OF PRESENT ILLNESS: PAIN THE PATIENT DESCRIBES THE PAIN... FALL RISK SCREENING: SCREENING :NO FALLS REPORTED IN THE LAST YEAR TODAY'S VISIT: PAIN LOCATED NECK L>R.PAIN AGGREVATED BY LIFTING AND PROLONGED SITTING. FINDS CURRENT MEDICATION HELPFUL W OUT SIDE EFFECTS.VAS 11/17.CURRENT MEDICINE FOR CHRONIC PAIN IS SKELAXIN 800MG TID,AMITRIPTYLINE 25MG AT HS AND TRAMADOL 50MG ONE TAB Q4HR PRN W MDD6.USUALLY USING 3-4 TAB.TRAMADOL PER DAY. CURRENT MEDICATIONS TAKING HYDROCHLOROTHIAZIDE 25 MG TABLET 1 TABLET ORALLY ONCE A DAY TAKING ATENOLOL 50 50MG TABLET ORAL BID TAKING VITAMIN D _ TABLET 5000 UNITS ORALLY ONCE A DAY TAKING BIOTIN 5 MG CAPSULE 1 CAPSULE ORALLY ONCE A DAY TAKING AMITRIPTYLINE HCL 50 MG TABLET 1 TABLET ORALLY QHS TAKING METAXALONE 800 MG TABLET 1 TABLET ORALLY THREE TIMES A DAY TAKING TRAMADOL HCL 50 MG TABLET 1 TABLET NEEDED ORALLY FOR PAIN EVERY 6 HOURS NEEDED MDD4 NOT-TAKING NAPROXEN 500 MG TABLET 1 TAB ORALLY EVERY 12 HRS MEDICATION LIST REVIEWED AND RECONCILED WITH THE PATIENT PAST MEDICAL HISTORY HTN LEFT SHOULDER PAIN BACK PAIN SCIATIC RIGHT LEG VIT D DEF. NERVE PAIN IN RIGHT LEG ALLERGIES LIDOCAINE: RAPID HEARTBEAT - SIDE EFFECTS LYRICA: MENTAL CONFUSION - SIDE EFFECTS SURGICAL HISTORY SPINAL FUSION WRIST SURGERY - RELEASE-LEFT 09/2018 FAMILY HISTORY FATHER: , DIAGNOSED WITH UNSPECIFIED CEREBRAL ARTERY OCCLUSION WITH CEREBRAL INFARCTION MOTHER: , ARTHRITIS, OTHER SPECIFIED CONDITIONS INFLUENCING HEALTH STATUS SIBLINGS: BROTHER-ALZHEIMERS, ARTHRITIS HIP 1 BROTHER(S) , 4 SISTER(S) . 1 SON(S) , 1 DAUGHTER(S) - HEALTHY. MOTHER - HIP REPLACEMENTSISTER - BREAST CANCER, BOTH SISTERS-ARTHRITIS, HIP REPLACEMENTSBROTHER DIAGNOSED WITH ALZHEIMER'S. SOCIAL HISTORY GENERAL: TOBACCO USE ARE YOU A:NONSMOKER EDUCATION LEVEL OF EDUCATION:FINISHED [employer] DEGREE DIET: REGULAR. LANGUAGE LANGUAGES SPOKEN:DANISH DOMESTIC VIOLENCE DO YOU FEEL SAFE IN YOUR ENVIRONMENT?YES RECREATIONAL DRUG USE DRUG USE?NO EXERCISE: TRIES TO BE ACTIVE.. 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 N/A HAS THE PATIENT BEEN EDUCATED REGARDING HIS/HER PLAN OF CARE?YES HAS THE PATIENT BEEN EDUCATED REGARDING PAIN, THE RISK FOR PAIN, THE IMPORTANCE OF EFFECTIVE PAIN MANAGEMENT, AND THE PAIN ASSESSMENT PROCESS?YES LATEX QUESTIONNAIRE LATEX ALLERGY : HAVE YOU EVER DEVELOPED ANY TYPE OF REACTION AFTER HANDLING LATEX PRODUCTS SUCH RUBBER GLOVES, CONDOMS, DIAPHRAGMS, BALLOONS, SOCKS, OR UNDERWEAR?NO LATEX ALLERGY : HAVE YOU EVER DEVELOPED ANY TYPE OF REACTION DURING OR AFTER DENTAL APPOINTMENT, VAGINAL/RECTAL EXAMINATION, SURGICAL PROCEDURE, OR ANY OTHER EXPOSURE?NO LATEX RISK : HAVE YOU EVER HAD ANY DIFFICULTY BREATHING OR HIVES AFTER EATING OR HANDLING ANY FRUITS, OR VEGETABLES; SUCH KIWI, BANANAS, STONE FRUITS, OR CHESTNUTSNO LATEX RISK : DO YOU HAVE A PREVIOUS PERSONAL HISTORY OF MORE THAN NINE SURGERIES, SPINA BIFIDA, OR REPEATED CATHERIZATIONS? NO LATEX RISK : ARE YOU FREQUENTLY EXPOSED TO LATEX PRODUCTS IN YOUR OCCUPATION?NO DATE ASKED : 05/15/2019 CAFFEINE CAFFEINE USE?YES HOW OFTEN AND HOW MUCH? 1 CUP COFFEE/DAILY ADVANCE DIRECTIVE ADVANCE DIRECTIVE DISCUSSED WITH PATIENT:YES HCP - CARLOS WASHINGTON (DAUGHTER) [employer] [id number] [employer]NA[employer] ALCOHOL SCREENING DID YOU HAVE A DRINK CONTAINING ALCOHOL IN THE PAST YEAR?YES HOW OFTEN DID YOU HAVE SIX OR MORE DRINKS ON ONE OCCASION IN THE PAST YEAR?NEVER (0 POINTS) HOW MANY DRINKS DID YOU HAVE ON A TYPICAL DAY WHEN YOU WERE DRINKING IN THE PAST YEAR?1 OR 2 (0 POINTS) HOW OFTEN DID YOU HAVE A DRINK CONTAINING ALCOHOL IN THE PAST YEAR?MONTHLY OR LESS (1 POINT) POINTS1 INTERPRETATIONNEGATIVE OCCUPATION: RETIRED. REVIEWED WITH PT 09/08/18 0914 BVREVIEWED WITH PATIENT 02/08/19 1059 JS05/15/19 REVIEWED WITH PT. ADREVIEWED WITH PATIENT 10/8/19 LASREVIEWED WITH PATIENT 11/16/2019 0907 JS. HOSPITALIZATION/MAJOR DIAGNOSTIC PROCEDURE SURGERY RELATED CHILD REVIEW OF SYSTEMS REVIEWED BY: PROVIDER: INGRID RESENDIZ . CONSTITUTIONAL: ANY CHANGE IN YOUR MEDICAL CONDITION? YES, PRESCRIBED SOMETHING RECENTLY FOR NERVE PAIN IN RIGHT LEG - PATIENT CANNOT REMEMBER THE NAME OF THE MEDICATION, WILL LET US KNOW WHAT THE MEDICATION IS AT THE NEXT VISIT . CHILLS NO . FEVER NO . INFECTION: DO YOU HAVE NEW INFECTIONS? NO . DO YOU HAVE HISTORY OF MRSA? NO . MUSCULOSKELETAL: ANY NEW PATTERNS OF PAIN OR NUMBNESS? NO . GASTROENTEROLOGY: ANY NEW CHANGE IN BOWEL CONTROL? NO . GENITOURINARY: ANY NEW CHANGE IN BLADDER CONTROL? NO . IS THERE A CHANCE YOU COULD BE ? NO . HEMATOLOGY/LYMPH: DO YOU TAKE ANY BLOOD THINNERS? (FOR EXAMPLE- COUMADIN, PLAVIX, AGGRENOX, PLATEL, PRADAXA, OR XARELTO) NO . WHEN WAS YOUR LAST DOSE? DATE: TIME: . NEUROLOGY: HAVE YOU FALLEN IN THE PAST 12 MONTHS? NO . ANY NEW EXTREMITY NUMBNESS OR WEAKNESS? YES, TINGLING/NUMBNESS/WEAKNESS IN RIGHT LEG AND SOME WEAKNESS TO LEFT LEG . CARDIOLOGY: DO YOU HAVE A PACEMAKER OR DEFIBRILLATOR? NO . RESPIRATORY: HAVE YOU BEEN SICK IN THE PAST WEEK? NO . FEVER NO . FLU LIKE SYMPTOMS? NO . COUGH NO . INTEGUMENTARY: DO YOU HAVE ANY RASHES OR OPEN SORES? NO . ALLERGIC/IMMUNO: ARE YOU ALLERGIC TO IV DYE? NO . ANY NEW ALLERGIES? NO . PSYCHIATRIC: DO YOU HAVE THOUGHTS OF HURTING YOURSELF OR SOMEONE ELSE? NO . ARE YOU ABUSED, NEGLECTED, OR IN AN UNSAFE ENVIRONMENT? NO . ENDOCRINOLOGY: ARE YOU DIABETIC? NO . OTHER: DO YOU NEED ANY PRESCRIPTIONS? NO . IF YES, PLEASE LIST: ____ . ANY NEW PROBLEMS WITH YOUR MEDICATIONS? NO . WHEN DID YOU LAST EAT? ____ . WHEN DID YOU LAST DRINK? ____ . WHAT DID YOU LAST DRINK? ____ . NAME OF PERSON DRIVING YOU HOME? ____ . DO YOU HAVE ANY OTHER QUESTIONS OR CONCERNS NO . VITAL SIGNS WT 175.2 LBS, HT 64 IN, BMI 30.07 INDEX, BP 130/80 MM HG, HR 67 /MIN, RR 18 /MIN, TEMP 96.9 F, OXYGEN SAT % 97%, SAFE IN ENV? (Y/N) YES, REVIEWED BY: DEBBIE. EXAMINATION GENERAL EXAMINATION: GENERAL AWAKE,ALERT ,PLEASANT . PSYCH AFFECT NORMAL . LUNGS: LUNG LITTLEJOHN ARE CLEAR TO AUSCULTATION BILATERALLY. GOOD MOVEMENT OF AIR . HEART: S1, S2 IN A REGULAR RATE AND RHYTHM. NO SIGNIFICANT MURMURS, RUBS OR GALLOPS NOTED . ASSESSMENTS CERVICALGIA - M54.2 (PRIMARY) POST LAMINECTOMY SYNDROME - M96.1 TREATMENT CERVICALGIA REFILL AMITRIPTYLINE HCL TABLET, 50 MG, 1 TABLET, ORALLY, QHS, 30 DAYS, 30, REFILLS 2 REFILL METAXALONE TABLET, 800 MG, 1 TABLET, ORALLY, THREE TIMES A DAY, 30 DAYS, 90 TABLET, REFILLS 2 REFILL TRAMADOL HCL TABLET, 50 MG, 1 TABLET NEEDED, ORALLY FOR PAIN, EVERY 6 HOURS NEEDED MDD4, 30 DAYS, 120, REFILLS 2 NOTES: ISTOP REGISTRY REVIEWED AND DEMONSTRATES COMPLLIANCE. BRINGS IN MEDICATIONS WHICH IS APPROPRIATE FOR WHAT WAS DISPENSED. RECENT URINE TOXICOLOGY REVIEWED. NO UNAUTHORIZED MEDICATIONS. NO ILLICIT SUBSTANCES AND PRESCRIBED MEDICATIONS WERE PRESENT. , RISKS OF NARCOTIC/OPIOD MEDICATIONS INCLUDES BUT IS NOT LIMITED TO RISK OF DEPENDANCE/DEVELOPMENT OF ADDICTION, MOOD DISTURBANCE AND DEPRESSION, OSTEOPOROSIS, HORMONAL AND LABIDAL CHANGES, RESPIRATORY DEPRESSION AND . PATIENT IS ADVISED NOT TO DRIVE OR DRINK ALCOHOL WHILE ON THESE MEDICATIONS. PROCEDURE CODES FA211 ESTABILISHED PATIENT [facility] FAC[facility] CHARGE DISPOSITION & COMMUNICATION FOLLOW UP 3 MONTHS (REASON: MED MGMNT NECK) ELECTRONICALLY SIGNED BY ASTRID BRUCE ON 11/28/2019 AT 03:06 PM EST DISCLAIMER : THIS IS A VISIT SUMMARY EXTRACTED FROM THE [employer] CHART. IT IS NOT A COPY OF THE [email or web address] PROGRESS NOTE. PAULY
== END ==
LOC: M PAIN 09:00
PROVIDERS: ATTEND Nurse Practitioner Family
DX: M54.2 Cervicalgia (principal); M96.1 Postlaminectomy syndrome, not elsewhere classified; I10 Essential (primary) hypertension; E55.9 Vitamin D deficiency, unspecified; Z88.8 Allergy status to other drugs, medicaments and biological substances; Z79.899 Other long term (current) drug therapy

== ENCOUNTER → 2019-11-20 | Outpatient (REF) | payer MEDICARE, BC, OTHER | LOC: M LAB LCGH 14:36 | PROVIDERS: ATTEND Physician Assistant | DX: L85.1 Acquired keratosis [keratoderma] palmaris et plantaris (principal) ==

== ENCOUNTER → 2020-02-14 | Outpatient (CLI) | payer MEDICARE, BC, OTHER ==
--- NOTE | 2020-02-15 04:54 | ECWPNPC ---
PATIENT NAME: ALFONSO MAR : 1950 GENDER: FEMALE VISIT DATE: 02/14/2020 DISCHARGE DATE: 02/14/20 1134 VISIT LOCKED DATE TIME: PHYSICIAN: INGRID LANDRY RESOURCE: INGRID LANDRY REASON FOR APPOINTMENT 1. 3 MONTHS, MED [phone] HISTORY OF PRESENT ILLNESS HISTORY OF PRESENT ILLNESS: TODAY'S VISIT WAS VIA [employer] VIDEO VISIT. THIS IS A 3 MONTH FOLLOW-UP FOR CHRONIC LEFT SHOULDER/UPPER BACK PAIN. OVERALL DOING FAIRLY WELL ON CURRENT CHRONIC PAIN MEDICATION MANAGEMENT. RATING PAIN LEVEL 2/10 VAS. DESCRIBES LEFT SCAPULAR AND SHOULDER PAIN INTERMITTENT AND BURNING. PAIN IS AGGRAVATED WITH INCREASED ACTIVITY. CURRENTLY USING SKELAXIN 800 MG 3 TIMES A DAY, AMITRIPTYLINE 25 MG AT AT BEDTIME AND TRAMADOL 50 MG EVERY 4 HOURS WHEN NECESSARY FOR SEVERE PAIN EPISODES. USUALLY USING TRAMADOL 3-4 TABS PER DAY. DENIES ADVERSE SIDE EFFECTS. PAIN THE PATIENT DESCRIBES THE PAIN... FALL RISK SCREENING: SCREENING :NO FALLS REPORTED IN THE LAST YEAR CURRENT MEDICATIONS TAKING HYDROCHLOROTHIAZIDE 25 MG TABLET 1 TABLET ORALLY ONCE A DAY TAKING ATENOLOL 50 50MG TABLET ORAL BID TAKING VITAMIN D _ TABLET 5000 UNITS ORALLY ONCE A DAY TAKING BIOTIN 5 MG CAPSULE 1 CAPSULE ORALLY ONCE A DAY TAKING AMITRIPTYLINE HCL 50 MG TABLET 1 TABLET ORALLY QHS TAKING METAXALONE 800 MG TABLET 1 TABLET ORALLY THREE TIMES A DAY TAKING TRAMADOL HCL 50 MG TABLET 1 TABLET NEEDED ORALLY FOR PAIN EVERY 6 HOURS NEEDED MDD4 TAKING GABAPENTIN 300 MG CAPSULE 1 CAPSULE ORALLY ONCE A DAY AT BEDTIME TAKING MULTIVITAMIN ADULT - TABLET DIRECTED ORALLY DAILY NOT-TAKING NAPROXEN 500 MG TABLET 1 TAB ORALLY EVERY 12 HRS MEDICATION LIST REVIEWED AND RECONCILED WITH THE PATIENT PAST MEDICAL HISTORY HTN LEFT SHOULDER PAIN BACK PAIN SCIATIC RIGHT LEG VIT D DEF. NERVE PAIN IN RIGHT LEG ALLERGIES LIDOCAINE: RAPID HEARTBEAT - SIDE EFFECTS LYRICA: MENTAL CONFUSION - SIDE EFFECTS SURGICAL HISTORY SPINAL FUSION WRIST SURGERY - RELEASE-LEFT 09/2018 FAMILY HISTORY FATHER: , DIAGNOSED WITH UNSPECIFIED CEREBRAL ARTERY OCCLUSION WITH CEREBRAL INFARCTION MOTHER: , ARTHRITIS, OTHER SPECIFIED CONDITIONS INFLUENCING HEALTH STATUS SIBLINGS: BROTHER-ALZHEIMERS, ARTHRITIS HIP 1 BROTHER(S) , 4 SISTER(S) . 1 SON(S) , 1 DAUGHTER(S) - HEALTHY. MOTHER - HIP REPLACEMENTSISTER - BREAST CANCER, BOTH SISTERS-ARTHRITIS, HIP REPLACEMENTSBROTHER DIAGNOSED WITH ALZHEIMER'S. SOCIAL HISTORY GENERAL: TOBACCO USE ARE YOU A:NONSMOKER EDUCATION LEVEL OF EDUCATION:FINISHED [employer] DEGREE DIET: REGULAR. LANGUAGE LANGUAGES SPOKEN:MAURITIAN DOMESTIC VIOLENCE DO YOU FEEL SAFE IN YOUR ENVIRONMENT?YES NEW PATIENT PAIN DIARY PATIENT DESCRIBES PAIN :BURNING, IT COMES AND GOES FROM 0-10, WHAT LEVEL IS YOUR PAIN TODAY?2 RECREATIONAL DRUG USE DRUG USE?NO EXERCISE: TRIES TO BE ACTIVE.. LEARNING BARRIERS / SPECIAL NEEDS CHANGE FROM LAST VISIT?NO BARRIERS TO LEARNING?NO HEARING IMPAIRED?NO VISION IMPAIRED?YES COGNITIVELY IMPAIRED?NO :CORRECTIVE LENSES READINESS TO LEARN?YES LEARNING PREFERENCES?NO LEARNING CAPABILITIES PRESENT?YES EMOTIONAL BARRIERS?NO SPECIAL DEVICES?NO VOICE PROFESSOR NEEDED?NO PAIN CLINIC PFS, CLERGY, PUBLIC HEALTH REFERRALS PFS REFERRAL NEEDED?NO CLERGY REFERRAL NEEDED?NO PUBLIC HEALTH REFERRAL NEEDED?NO WAS THE PROVIDER NOTIFIED OF ANY PERTINENT INFO? N/A HAS THE PATIENT BEEN EDUCATED REGARDING HIS/HER PLAN OF CARE?YES HAS THE PATIENT BEEN EDUCATED REGARDING PAIN, THE RISK FOR PAIN, THE IMPORTANCE OF EFFECTIVE PAIN MANAGEMENT, AND THE PAIN ASSESSMENT PROCESS?YES LATEX QUESTIONNAIRE LATEX ALLERGY : HAVE YOU EVER DEVELOPED ANY TYPE OF REACTION AFTER HANDLING LATEX PRODUCTS SUCH RUBBER GLOVES, CONDOMS, DIAPHRAGMS, BALLOONS, SOCKS, OR UNDERWEAR?NO LATEX ALLERGY : HAVE YOU EVER DEVELOPED ANY TYPE OF REACTION DURING OR AFTER DENTAL APPOINTMENT, VAGINAL/RECTAL EXAMINATION, SURGICAL PROCEDURE, OR ANY OTHER EXPOSURE?NO DATE ASKED : 05/15/2019 LATEX RISK : HAVE YOU EVER HAD ANY DIFFICULTY BREATHING OR HIVES AFTER EATING OR HANDLING ANY FRUITS, OR VEGETABLES; SUCH KIWI, BANANAS, STONE FRUITS, OR CHESTNUTSNO LATEX RISK : DO YOU HAVE A PREVIOUS PERSONAL HISTORY OF MORE THAN NINE SURGERIES, SPINA BIFIDA, OR REPEATED CATHERIZATIONS? NO LATEX RISK : ARE YOU FREQUENTLY EXPOSED TO LATEX PRODUCTS IN YOUR OCCUPATION?NO CAFFEINE CAFFEINE USE?YES HOW OFTEN AND HOW MUCH? 1 CUP COFFEE/DAILY ADVANCE DIRECTIVE ADVANCE DIRECTIVE DISCUSSED WITH PATIENT:YES HCP - CARLOS WASHINGTON (DAUGHTER) MANDAEISM [id number] PENTECOSTALISM ALCOHOL SCREENING DID YOU HAVE A DRINK CONTAINING ALCOHOL IN THE PAST YEAR?YES HOW OFTEN DID YOU HAVE SIX OR MORE DRINKS ON ONE OCCASION IN THE PAST YEAR?NEVER (0 POINTS) HOW MANY DRINKS DID YOU HAVE ON A TYPICAL DAY WHEN YOU WERE DRINKING IN THE PAST YEAR?1 OR 2 (0 POINTS) HOW OFTEN DID YOU HAVE A DRINK CONTAINING ALCOHOL IN THE PAST YEAR?MONTHLY OR LESS (1 POINT) POINTS1 INTERPRETATIONNEGATIVE OCCUPATION: RETIRED. REVIEWED WITH PT 09/08/18 0914 BVREVIEWED WITH PATIENT 02/08/19 1059 JS05/15/19 REVIEWED WITH PT. ADREVIEWED WITH PATIENT 08/15/19 LASREVIEWED WITH PATIENT 11/16/2019 0907 JS. HOSPITALIZATION/MAJOR DIAGNOSTIC PROCEDURE SURGERY RELATED CHILD REVIEW OF SYSTEMS REVIEWED BY: PROVIDER: INGRID RESENDIZ . CONSTITUTIONAL: ANY CHANGE IN YOUR MEDICAL CONDITION? NO . CHILLS NO . FEVER NO . INFECTION: DO YOU HAVE NEW INFECTIONS? NO . DO YOU HAVE HISTORY OF MRSA? NO . MUSCULOSKELETAL: ANY NEW PATTERNS OF PAIN OR NUMBNESS? NO . GASTROENTEROLOGY: ANY NEW CHANGE IN BOWEL CONTROL? NO . GENITOURINARY: ANY NEW CHANGE IN BLADDER CONTROL? NO . IS THERE A CHANCE YOU COULD BE ? NO . HEMATOLOGY/LYMPH: DO YOU TAKE ANY BLOOD THINNERS? (FOR EXAMPLE- COUMADIN, PLAVIX, AGGRENOX, PLATEL, PRADAXA, OR XARELTO) NO . WHEN WAS YOUR LAST DOSE? DATE: TIME: . NEUROLOGY: HAVE YOU FALLEN IN THE PAST 12 MONTHS? YES . ANY NEW EXTREMITY NUMBNESS OR WEAKNESS? NO . CARDIOLOGY: DO YOU HAVE A PACEMAKER OR DEFIBRILLATOR? NO . RESPIRATORY: HAVE YOU BEEN SICK IN THE PAST WEEK? NO . FEVER NO . FLU LIKE SYMPTOMS? NO . COUGH NO . INTEGUMENTARY: DO YOU HAVE ANY RASHES OR OPEN SORES? NO . ALLERGIC/IMMUNO: ARE YOU ALLERGIC TO IV DYE? NO . ANY NEW ALLERGIES? NO . PSYCHIATRIC: DO YOU HAVE THOUGHTS OF HURTING YOURSELF OR SOMEONE ELSE? NO . ARE YOU ABUSED, NEGLECTED, OR IN AN UNSAFE ENVIRONMENT? NO . ENDOCRINOLOGY: ARE YOU DIABETIC? NO . OTHER: DO YOU NEED ANY PRESCRIPTIONS? YES . IF YES, PLEASE LIST: METAXALONE - [facility], AMITRIPTYLINE - [facility] . ANY NEW PROBLEMS WITH YOUR MEDICATIONS? NO . WHEN DID YOU LAST EAT? ____ . WHEN DID YOU LAST DRINK? ____ . WHAT DID YOU LAST DRINK? ____ . NAME OF PERSON DRIVING YOU HOME? ____ . DO YOU HAVE ANY OTHER QUESTIONS OR CONCERNS NO . EXAMINATION GENERAL EXAMINATION: GENERALNO ACUTE DISTRESS, WELL NOURISHED AND HYDRATED. PSYCHAPPROPRIATE MOOD AND AFFECT . FACE:UNREMARKABLE. ASSESSMENTS CERVICALGIA - M54.2 (PRIMARY) POST LAMINECTOMY SYNDROME - M96.1 TREATMENT CERVICALGIA REFILL AMITRIPTYLINE HCL TABLET, 50 MG, 1 TABLET, ORALLY, QHS, 30 DAYS, 30, REFILLS 2 REFILL METAXALONE TABLET, 800 MG, 1 TABLET, ORALLY, THREE TIMES A DAY, 30 DAYS, 90 TABLET, REFILLS 2 DISPOSITION & COMMUNICATION FOLLOW UP 3 MONTHS (REASON: LEFT SHOULDER/MED MGMNT) ELECTRONICALLY SIGNED BY ASTRID BRUCE ON 02/14/2020 AT 11:14 AM EDT DISCLAIMER : THIS IS A VISIT SUMMARY EXTRACTED FROM THE [email or web address] CHART. IT IS NOT A COPY OF THE [employer] PROGRESS NOTE. PAULY
== END ==
LOC: M TMPAIN 10:15 → M PAIN 10:15
PROVIDERS: ATTEND Nurse Practitioner Family
DX: M54.2 Cervicalgia (principal); M96.1 Postlaminectomy syndrome, not elsewhere classified; I10 Essential (primary) hypertension; Z79.891 Long term (current) use of opiate analgesic; Z79.899 Other long term (current) drug therapy; Z88.8 Allergy status to other drugs, medicaments and biological substances

== ENCOUNTER → 2020-05-21 | Outpatient (CLI) | payer MEDICARE, BC, OTHER ==
--- NOTE | 2020-05-22 02:23 | ECWPNPC ---
PATIENT NAME: ALFONSO MAR : 1950 GENDER: FEMALE VISIT DATE: 05/21/2020 DISCHARGE DATE: 05/21/20 1105 VISIT LOCKED DATE TIME: PHYSICIAN: INGRID LANDRY RESOURCE: INGRID LANDRY REASON FOR APPOINTMENT 1. LEFT SHOULDER/MED MGMNT HISTORY OF PRESENT ILLNESS GENERAL: -. FALL RISK SCREENING: SCREENING :NO FALLS REPORTED IN THE LAST YEAR PAIN SCREENING: PATIENT HAS A COMPLAINT OF ACUTE OR CHRONIC PAIN :YES LEFT THORACIC AREA INTENSITY OF PAIN (SCALE OF 1 TO 10):1 TODAY IS A GOOD DAY WHAT DOES YOUR PAIN FEEL LIKE:BURNING, TENDER, SORE DURATION:RHYTHMIC "COMES AND GOES" PAIN IS INCREASED BY:ACTIVITIES VERY SENSITIVE TO TOUCH " DON'T TOUCH ME OR I WILL EXPERIENCE PAIN" PAIN IS DECREASED BY:OTHERS NOT TO TOUCH AND PAIN IS DECREASED NURSING NOTE: -. PAIN CENTER INTAKE QUESTIONS: DO YOU HAVE A HISTORY OF MRSA? :NO DO YOU TAKE A BLOOD THINNERS? :NO DO YOU HAVE ANY BLEEDING DISORDERS? :NO ANY NEW NUMBNESS OR WEAKNESS IN YOUR LEGS OR ARMS? :NO ANY PACEMAKER,DEFIBRILLATOR, OR DORSAL COLUMN STIMULATOR? :NO DO YOU HAVE ANY RASHES OR OPEN SORES? :NO ARE YOU ALLERGIC TO IV DYE? :NO ARE YOU DIABETIC? :NO ANY NEW PROBLEMS WITH YOUR MEDICATIONS? :NO HAVE YOU RECEIVED A VACCINE IN THE PAST 30 DAYS? :NO DO YOU PLAN TO RECEIVE A VACCINE IN THE NEXT 21 DAYS? :NO DO YOU NEED ANY PRESCRIPTION? :NO DO YOU TAKE ANY IMMUNOSUPPRESSIVE MEDICATIONS? :NO IS THERE A CHANCE YOU COULD BE ? :NO ARE YOU BREAST FEEDING? :NO TODAY'S VISIT: PAIN LOCATED NECK L>R.PAIN AGGREVATED BY LIFTING AND PROLONGED SITTING. FINDS CURRENT MEDICATION HELPFUL W OUT SIDE EFFECTS.VAS 1/10.CURRENT MEDICINE FOR CHRONIC PAIN IS SKELAXIN 800MG TID,AMITRIPTYLINE 25MG AT HS AND TRAMADOL 50MG ONE TAB Q4HR PRN W MDD6.USUALLY USING 3-4 TAB.TRAMADOL PER DAY. CURRENT MEDICATIONS TAKING HYDROCHLOROTHIAZIDE 25 MG TABLET 1 TABLET ORALLY ONCE A DAY TAKING ATENOLOL 50 50MG TABLET ORAL BID TAKING VITAMIN D _ TABLET 5000 UNITS ORALLY ONCE A DAY TAKING BIOTIN 5 MG CAPSULE 1 CAPSULE ORALLY ONCE A DAY TAKING TRAMADOL HCL 50 MG TABLET 1 TABLET NEEDED ORALLY FOR PAIN EVERY 6 HOURS NEEDED MDD4 TAKING GABAPENTIN 300 MG CAPSULE 1 CAPSULE ORALLY ONCE A DAY AT BEDTIME, NOTES: CHANGES HOW SHE TAKES TAKING MULTIVITAMIN ADULT - TABLET DIRECTED ORALLY DAILY TAKING METAXALONE 800 MG TABLET 1 TABLET ORALLY THREE TIMES A DAY TAKING AMITRIPTYLINE HCL 50 MG TABLET 1 TABLET ORALLY QHS NOT-TAKING NAPROXEN 500 MG TABLET 1 TAB ORALLY EVERY 12 HRS MEDICATION LIST REVIEWED AND RECONCILED WITH THE PATIENT PAST MEDICAL HISTORY HTN LEFT SHOULDER PAIN BACK PAIN SCIATIC RIGHT LEG VIT D DEF. NERVE PAIN IN RIGHT LEG ADULT ONSET SCOLIOSIS ALLERGIES LIDOCAINE: RAPID HEARTBEAT - SIDE EFFECTS LYRICA: MENTAL CONFUSION - SIDE EFFECTS SURGICAL HISTORY SPINAL FUSION WRIST SURGERY - RELEASE-LEFT 09/2018 FAMILY HISTORY FATHER: , DIAGNOSED WITH UNSPECIFIED CEREBRAL ARTERY OCCLUSION WITH CEREBRAL INFARCTION MOTHER: , ARTHRITIS, OTHER SPECIFIED CONDITIONS INFLUENCING HEALTH STATUS SIBLINGS: BROTHER-ALZHEIMERS, ARTHRITIS HIP 1 BROTHER(S) , 4 SISTER(S) . 1 SON(S) , 1 DAUGHTER(S) - HEALTHY. MOTHER - HIP REPLACEMENTSISTER - BREAST CANCER, BOTH SISTERS-ARTHRITIS, HIP REPLACEMENTSBROTHER DIAGNOSED WITH ALZHEIMER'S. SOCIAL HISTORY GENERAL: TOBACCO USE ARE YOU A:NONSMOKER LATEX QUESTIONNAIRE LATEX ALLERGY : HAVE YOU EVER DEVELOPED ANY TYPE OF REACTION AFTER HANDLING LATEX PRODUCTS SUCH RUBBER GLOVES, CONDOMS, DIAPHRAGMS, BALLOONS, SOCKS, OR UNDERWEAR?NO LATEX ALLERGY : HAVE YOU EVER DEVELOPED ANY TYPE OF REACTION DURING OR AFTER DENTAL APPOINTMENT, VAGINAL/RECTAL EXAMINATION, SURGICAL PROCEDURE, OR ANY OTHER EXPOSURE?NO DATE ASKED : 05/15/2019 LATEX RISK : HAVE YOU EVER HAD ANY DIFFICULTY BREATHING OR HIVES AFTER EATING OR HANDLING ANY FRUITS, OR VEGETABLES; SUCH KIWI, BANANAS, STONE FRUITS, OR CHESTNUTSNO LATEX RISK : DO YOU HAVE A PREVIOUS PERSONAL HISTORY OF MORE THAN NINE SURGERIES, SPINA BIFIDA, OR REPEATED CATHERIZATIONS? NO LATEX RISK : ARE YOU FREQUENTLY EXPOSED TO LATEX PRODUCTS IN YOUR OCCUPATION?NO ALCOHOL SCREENING DID YOU HAVE A DRINK CONTAINING ALCOHOL IN THE PAST YEAR?YES HOW OFTEN DID YOU HAVE SIX OR MORE DRINKS ON ONE OCCASION IN THE PAST YEAR?NEVER (0 POINTS) HOW MANY DRINKS DID YOU HAVE ON A TYPICAL DAY WHEN YOU WERE DRINKING IN THE PAST YEAR?1 OR 2 (0 POINTS) HOW OFTEN DID YOU HAVE A DRINK CONTAINING ALCOHOL IN THE PAST YEAR?MONTHLY OR LESS (1 POINT) POINTS1 INTERPRETATIONNEGATIVE RECREATIONAL DRUG USE DRUG USE?NO CAFFEINE CAFFEINE USE?YES HOW OFTEN AND HOW MUCH? 1 CUP COFFEE/DAILY JAINISM [id number] BUDDHISM LANGUAGE LANGUAGES SPOKEN:MACEDONIAN EDUCATION LEVEL OF EDUCATION:FINISHED [employer] DEGREE LEARNING BARRIERS / SPECIAL NEEDS CHANGE FROM LAST VISIT?NO BARRIERS TO LEARNING?NO HEARING IMPAIRED?NO VISION IMPAIRED?YES COGNITIVELY IMPAIRED?NO :CORRECTIVE LENSES READINESS TO LEARN?YES LEARNING PREFERENCES?NO LEARNING CAPABILITIES PRESENT?YES EMOTIONAL BARRIERS?NO SPECIAL DEVICES?NO WILDLIFE BIOLOGY INTERNSHIP NEEDED?NO DOMESTIC VIOLENCE DO YOU FEEL SAFE IN YOUR ENVIRONMENT?YES OCCUPATION: RETIRED. DIET: REGULAR. EXERCISE: TRIES TO BE ACTIVE.. NEW PATIENT PAIN DIARY PATIENT DESCRIBES PAIN :BURNING, IT COMES AND GOES FROM 0-10, WHAT LEVEL IS YOUR PAIN TODAY?2 PAIN CLINIC PFS, CLERGY, PUBLIC HEALTH REFERRALS PFS REFERRAL NEEDED?NO CLERGY REFERRAL NEEDED?NO PUBLIC HEALTH REFERRAL NEEDED?NO WAS THE PROVIDER NOTIFIED OF ANY PERTINENT INFO? N/A HAS THE PATIENT BEEN EDUCATED REGARDING HIS/HER PLAN OF CARE?YES HAS THE PATIENT BEEN EDUCATED REGARDING PAIN, THE RISK FOR PAIN, THE IMPORTANCE OF EFFECTIVE PAIN MANAGEMENT, AND THE PAIN ASSESSMENT PROCESS?YES ADVANCE DIRECTIVE ADVANCE DIRECTIVE DISCUSSED WITH PATIENT:YES HCP - CARLOS WASHINGTON (DAUGHTER) REVIEWED WITH PT 09/08/18 0914 BVREVIEWED WITH PATIENT 02/08/19 1059 JS05/15/19 REVIEWED WITH PT. ADREVIEWED WITH PATIENT 08/15/19 LASREVIEWED WITH PATIENT 11/16/2019 0907 JS. HOSPITALIZATION/MAJOR DIAGNOSTIC PROCEDURE SURGERY RELATED CHILD REVIEW OF SYSTEMS CONSTITUTIONAL: ANY RECENT FEVER NO . CHILLS NO . WEIGHT CHANGE OF UNKNOWN REASONS NO . GASTROENTEROLOGY: NEW UNEXPLAINABLE CHANGES IN BOWEL CONTROL NO . CONSTIPATION NO . GENITOURINARY: ANY NEW CHANGE IN BLADDER CONTROL? NO . NEUROLOGY: NEW ONSET DIZZINESS OR NEUROLOGICAL CHANGES NOT MENTIONED NO . NEW NUMBNESS OR PAIN PATTERNS NOT MENTIONED AND PERTINENT TO TODAY'S VISIT NO . CARDIOLOGY: NEW CHEST PRESSURE NO . NEW CHEST PAIN NO . RESPIRATORY: UNEXPLAINABLE COUGH NO . NEW SHORTNESS OF BREATH NO . VITAL SIGNS WT 176.6 LBS, HT 64 IN, BMI 30.31 INDEX, BP 117/56 MM HG, HR 75 /MIN, RR 18 /MIN, TEMP 97.8 F, OXYGEN SAT % 92%, NA INITIALS AW 1026. EXAMINATION GENERAL EXAMINATION: GENERAL AWAKE,ALERT ,PLEASANT . PSYCH AFFECT NORMAL . LUNGS: LUNG LITTLEJOHN ARE CLEAR TO AUSCULTATION BILATERALLY. GOOD MOVEMENT OF AIR . HEART: S1, S2 IN A REGULAR RATE AND RHYTHM. NO SIGNIFICANT MURMURS, RUBS OR GALLOPS NOTED . ASSESSMENTS CERVICALGIA - M54.2 (PRIMARY) POST LAMINECTOMY SYNDROME - M96.1 CHRONIC PRESCRIPTION OPIATE USE - Z79.891 TREATMENT CERVICALGIA REFILL TRAMADOL HCL TABLET, 50 MG, 1 TABLET NEEDED, ORALLY FOR PAIN, EVERY 8 HOURS WHEN NECESSARY FOR SEVERE PAIN. MDD A 3, 30 DAYS, 90, REFILLS 2 CONTINUE METAXALONE TABLET, 800 MG, 1 TABLET, ORALLY, TWICE A DAY, 30 DAYS, 60 TABLET, REFILLS 2 REFILL AMITRIPTYLINE HCL TABLET, 50 MG, 1 TABLET, ORALLY, QHS, 90 DAY(S), 90, REFILLS 0 NOTES: ISTOP REGISTRY REVIEWED AND DEMONSTRATES COMPLLIANCE. BRINGS IN MEDICATIONS WHICH IS APPROPRIATE FOR WHAT WAS DISPENSED. RECENT URINE TOXICOLOGY REVIEWED. NO UNAUTHORIZED MEDICATIONS. NO ILLICIT SUBSTANCES AND PRESCRIBED MEDICATIONS WERE PRESENT. URINE TOX TODAY , RISKS OF NARCOTIC/OPIOD MEDICATIONS INCLUDES BUT IS NOT LIMITED TO RISK OF DEPENDANCE/DEVELOPMENT OF ADDICTION, MOOD DISTURBANCE AND DEPRESSION, OSTEOPOROSIS, HORMONAL AND LABIDAL CHANGES, RESPIRATORY DEPRESSION AND . PATIENT IS ADVISED NOT TO DRIVE OR DRINK ALCOHOL WHILE ON THESE MEDICATIONS. PROCEDURE CODES FA211 ESTABILISHED PATIENT [facility] CHARGE DISPOSITION & COMMUNICATION FOLLOW UP 3 MONTHS (REASON: MED MANAGEMENT/NECK PAIN) ELECTRONICALLY SIGNED BY ASTRID BRUCE ON 05/21/2020 AT 04:39 PM EDT DISCLAIMER : THIS IS A VISIT SUMMARY EXTRACTED FROM THE [employer] CHART. IT IS NOT A COPY OF THE [employer] PROGRESS NOTE. PAULY
== END ==
LOC: M PAIN 10:15
PROVIDERS: ATTEND Nurse Practitioner Family
DX: M54.2 Cervicalgia (principal); M96.1 Postlaminectomy syndrome, not elsewhere classified; Z79.891 Long term (current) use of opiate analgesic

== ENCOUNTER → 2020-08-22 | Outpatient (CLI) | payer MEDICARE, BC, OTHER ==
--- NOTE | 2020-08-26 11:45 | ECWPNPC ---
PATIENT NAME: ALFONSO MAR : 1950 GENDER: FEMALE VISIT DATE: 08/22/2020 DISCHARGE DATE: 08/22/20946 VISIT LOCKED DATE TIME: PHYSICIAN: INGRID LANDRY RESOURCE: INGRID LANDRY REASON FOR APPOINTMENT 1. MED MANAGEMENT/NECK PAIN HISTORY OF PRESENT ILLNESS DEPRESSION SCREENING: PHQ-2 (2015 EDITION) LITTLE INTEREST OR PLEASURE IN DOING THINGS?NOT AT ALL FEELING DOWN, DEPRESSED, OR HOPELESS?NOT AT ALL TOTAL SCORE0 GENERAL: -. FALL RISK SCREENING: SCREENING :NO FALLS REPORTED IN THE LAST YEAR NONE PAIN SCREENING: PATIENT HAS A COMPLAINT OF ACUTE OR CHRONIC PAIN :YES LOCATION OF PAIN:NECK LEFT SHOULDER BLADE INTENSITY OF PAIN (SCALE OF 1 TO 10):1 WHAT DOES YOUR PAIN FEEL LIKE:BURNING, TENDER DURATION:PERIODIC PAIN IS INCREASED BY:ACTIVITIES PAIN IS DECREASED BY:USE OF PAIN MEDICATIONS NURSING NOTE: -. PAIN CENTER INTAKE QUESTIONS: DO YOU HAVE A HISTORY OF MRSA? :NO DO YOU TAKE A BLOOD THINNERS? :NO DO YOU HAVE ANY BLEEDING DISORDERS? :NO ANY NEW NUMBNESS OR WEAKNESS IN YOUR LEGS OR ARMS? :NO ANY PACEMAKER,DEFIBRILLATOR, OR DORSAL COLUMN STIMULATOR? :NO DO YOU HAVE ANY RASHES OR OPEN SORES? :NO ARE YOU ALLERGIC TO IV DYE? :NO ARE YOU DIABETIC? :NO ANY NEW PROBLEMS WITH YOUR MEDICATIONS? :YES LIDOACANE AND LYRICIA HAVE YOU RECEIVED A VACCINE IN THE PAST 30 DAYS? :YES FLU VAC 2 WEEKS AGO DO YOU PLAN TO RECEIVE A VACCINE IN THE NEXT 21 DAYS? :NO DO YOU NEED ANY PRESCRIPTION? :YES TRAMADOL- [facility] IN [place] AMITRIPTYLINE- [facility] MAIL ORDER DO YOU TAKE ANY IMMUNOSUPPRESSIVE MEDICATIONS? :NO IS THERE A CHANCE YOU COULD BE ? :NO ARE YOU BREAST FEEDING? :NO TODAY'S VISIT: PAIN LOCATED NECK L>R.PAIN AGGREVATED BY LIFTING AND PROLONGED SITTING. FINDS CURRENT MEDICATION HELPFUL W OUT SIDE EFFECTS.VAS 1/10.CURRENT MEDICINE FOR CHRONIC PAIN IS SKELAXIN 800MG TID,AMITRIPTYLINE 25MG AT HS AND TRAMADOL 50MG ONE TAB Q4HR PRN W MDD6.USUALLY USING 3-4 TAB.TRAMADOL PER DAY. CURRENT MEDICATIONS TAKING HYDROCHLOROTHIAZIDE 25 MG TABLET 1 TABLET ORALLY ONCE A DAY TAKING ATENOLOL 50 50MG TABLET ORAL BID TAKING VITAMIN D _ TABLET 5000 UNITS ORALLY ONCE A DAY TAKING BIOTIN 5 MG CAPSULE 1 CAPSULE ORALLY ONCE A DAY TAKING GABAPENTIN 300 MG CAPSULE 1 CAPSULE ORALLY ONCE A DAY AT BEDTIME, NOTES: CHANGES HOW SHE TAKES TAKING MULTIVITAMIN ADULT - TABLET DIRECTED ORALLY DAILY TAKING TRAMADOL HCL 50 MG TABLET 1 TABLET NEEDED ORALLY FOR PAIN EVERY 8 HOURS WHEN NECESSARY FOR SEVERE PAIN. MDD A 3 TAKING METAXALONE 800 MG TABLET 1 TABLET ORALLY TWICE A DAY TAKING AMITRIPTYLINE HCL 50 MG TABLET 1 TABLET ORALLY QHS NOT-TAKING NAPROXEN 500 MG TABLET 1 TAB ORALLY EVERY 12 HRS MEDICATION LIST REVIEWED AND RECONCILED WITH THE PATIENT PAST MEDICAL HISTORY HTN LEFT SHOULDER PAIN BACK PAIN SCIATIC RIGHT LEG VIT D DEF. NERVE PAIN IN RIGHT LEG ADULT ONSET SCOLIOSIS ALLERGIES LIDOCAINE: RAPID HEARTBEAT - SIDE EFFECTS LYRICA: MENTAL CONFUSION - SIDE EFFECTS SURGICAL HISTORY SPINAL FUSION WRIST SURGERY - RELEASE-LEFT 09/2018 FAMILY HISTORY FATHER: , DIAGNOSED WITH UNSPECIFIED CEREBRAL ARTERY OCCLUSION WITH CEREBRAL INFARCTION MOTHER: , ARTHRITIS, OTHER SPECIFIED CONDITIONS INFLUENCING HEALTH STATUS SIBLINGS: BROTHER-ALZHEIMERS, ARTHRITIS HIP 1 BROTHER(S) , 4 SISTER(S) . 1 SON(S) , 1 DAUGHTER(S) - HEALTHY. MOTHER - HIP REPLACEMENTSISTER - BREAST CANCER, BOTH SISTERS-ARTHRITIS, HIP REPLACEMENTSBROTHER DIAGNOSED WITH ALZHEIMER'S. SOCIAL HISTORY GENERAL: TOBACCO USE ARE YOU A:NONSMOKER LATEX QUESTIONNAIRE LATEX ALLERGY : HAVE YOU EVER DEVELOPED ANY TYPE OF REACTION AFTER HANDLING LATEX PRODUCTS SUCH RUBBER GLOVES, CONDOMS, DIAPHRAGMS, BALLOONS, SOCKS, OR UNDERWEAR?NO LATEX ALLERGY : HAVE YOU EVER DEVELOPED ANY TYPE OF REACTION DURING OR AFTER DENTAL APPOINTMENT, VAGINAL/RECTAL EXAMINATION, SURGICAL PROCEDURE, OR ANY OTHER EXPOSURE?NO LATEX RISK : HAVE YOU EVER HAD ANY DIFFICULTY BREATHING OR HIVES AFTER EATING OR HANDLING ANY FRUITS, OR VEGETABLES; SUCH KIWI, BANANAS, STONE FRUITS, OR CHESTNUTSNO LATEX RISK : DO YOU HAVE A PREVIOUS PERSONAL HISTORY OF MORE THAN NINE SURGERIES, SPINA BIFIDA, OR REPEATED CATHERIZATIONS? NO LATEX RISK : ARE YOU FREQUENTLY EXPOSED TO LATEX PRODUCTS IN YOUR OCCUPATION?NO DATE ASKED : 08/22/2020 ALCOHOL SCREENING DID YOU HAVE A DRINK CONTAINING ALCOHOL IN THE PAST YEAR?YES HOW OFTEN DID YOU HAVE SIX OR MORE DRINKS ON ONE OCCASION IN THE PAST YEAR?NEVER (0 POINTS) HOW MANY DRINKS DID YOU HAVE ON A TYPICAL DAY WHEN YOU WERE DRINKING IN THE PAST YEAR?1 OR 2 (0 POINTS) HOW OFTEN DID YOU HAVE A DRINK CONTAINING ALCOHOL IN THE PAST YEAR?MONTHLY OR LESS (1 POINT) POINTS1 INTERPRETATIONNEGATIVE RECREATIONAL DRUG USE DRUG USE?NO CAFFEINE CAFFEINE USE?YES HOW OFTEN AND HOW MUCH? 1 CUP COFFEE/DAILY PENTECOSTAL [id number] SAMARITAN LANGUAGE LANGUAGES SPOKEN:URDU EDUCATION LEVEL OF EDUCATION:FINISHED [employer] DEGREE LEARNING BARRIERS / SPECIAL NEEDS CHANGE FROM LAST VISIT?NO BARRIERS TO LEARNING?NO HEARING IMPAIRED?NO VISION IMPAIRED?YES COGNITIVELY IMPAIRED?NO :CORRECTIVE LENSES READINESS TO LEARN?YES LEARNING PREFERENCES?NO LEARNING CAPABILITIES PRESENT?YES EMOTIONAL BARRIERS?NO SPECIAL DEVICES?NO INFORMATION SYSTEMS AUDIT MANAGER NEEDED?NO DOMESTIC VIOLENCE DO YOU FEEL SAFE IN YOUR ENVIRONMENT?YES OCCUPATION: RETIRED. DIET: REGULAR. EXERCISE: TRIES TO BE ACTIVE.. NEW PATIENT PAIN DIARY PATIENT DESCRIBES PAIN : BURNING, IT COMES AND GOES, FROM 0-10, WHAT LEVEL IS YOUR PAIN TODAY? 2. PAIN CLINIC PFS, CLERGY, PUBLIC HEALTH REFERRALS PFS REFERRAL NEEDED?NO CLERGY REFERRAL NEEDED?NO PUBLIC HEALTH REFERRAL NEEDED?NO WAS THE PROVIDER NOTIFIED OF ANY PERTINENT INFO? N/A HAS THE PATIENT BEEN EDUCATED REGARDING HIS/HER PLAN OF CARE?YES HAS THE PATIENT BEEN EDUCATED REGARDING PAIN, THE RISK FOR PAIN, THE IMPORTANCE OF EFFECTIVE PAIN MANAGEMENT, AND THE PAIN ASSESSMENT PROCESS?YES ADVANCE DIRECTIVE ADVANCE DIRECTIVE DISCUSSED WITH PATIENT:YES HCP - CARLOS WASHINGTON (DAUGHTER) REVIEWED WITH PT 09/08/18 0914 BVREVIEWED WITH PATIENT 02/08/19 1059 JS05/15/19 REVIEWED WITH PT. ADAMAWED WITH PATIENT 08/15/19 LASREVIEWED WITH PATIENT 11/16/2019 0907 JS. HOSPITALIZATION/MAJOR DIAGNOSTIC PROCEDURE SURGERY RELATED CHILD REVIEW OF SYSTEMS CONSTITUTIONAL: ANY RECENT FEVER NO . CHILLS NO . WEIGHT CHANGE OF UNKNOWN REASONS NO . GASTROENTEROLOGY: NEW UNEXPLAINABLE CHANGES IN BOWEL CONTROL NO . CONSTIPATION NO . GENITOURINARY: ANY NEW CHANGE IN BLADDER CONTROL? NO . NEUROLOGY: NEW ONSET DIZZINESS OR NEUROLOGICAL CHANGES NOT MENTIONED NO . NEW NUMBNESS OR PAIN PATTERNS NOT MENTIONED AND PERTINENT TO TODAY'S VISIT NO . CARDIOLOGY: NEW CHEST PRESSURE NO . NEW CHEST PAIN NO . RESPIRATORY: UNEXPLAINABLE COUGH NO . NEW SHORTNESS OF BREATH NO . VITAL SIGNS WT 171.8 LBS, HT 64 IN, BMI 29.49 INDEX, BP 123/67 MM HG, HR 72 /MIN, RR 18 /MIN, TEMP 97.6 F, OXYGEN SAT % 97%, SAFE IN ENV? (Y/N) YES, NA INITIALS [place] 09:24, REVIEWED BY: DEBBIE. EXAMINATION GENERAL EXAMINATION: GENERAL AWAKE,ALERT ,PLEASANT . PSYCH AFFECT NORMAL . LUNGS: LUNG LITTLEJOHN ARE CLEAR TO AUSCULTATION BILATERALLY. GOOD MOVEMENT OF AIR . HEART: S1, S2 IN A REGULAR RATE AND RHYTHM. NO SIGNIFICANT MURMURS, RUBS OR GALLOPS NOTED . ASSESSMENTS CERVICALGIA - M54.2 (PRIMARY) POST LAMINECTOMY SYNDROME - M96.1 CHRONIC PRESCRIPTION OPIATE USE - Z79.891 TREATMENT CERVICALGIA REFILL TRAMADOL HCL TABLET, 50 MG, 1 TABLET NEEDED, ORALLY FOR PAIN, EVERY 8 HOURS WHEN NECESSARY FOR SEVERE PAIN. MDD A 3, 30 DAYS, 90, REFILLS 2 REFILL AMITRIPTYLINE HCL TABLET, 50 MG, 1 TABLET, ORALLY, QHS, 90 DAY(S), 90, REFILLS 0 NOTES: ISTOP REGISTRY REVIEWED AND DEMONSTRATES COMPLLIANCE. BRINGS IN MEDICATIONS WHICH IS APPROPRIATE FOR WHAT WAS DISPENSED. RECENT URINE TOXICOLOGY REVIEWED. NO UNAUTHORIZED MEDICATIONS. NO ILLICIT SUBSTANCES AND PRESCRIBED MEDICATIONS WERE PRESENT. , RISKS OF NARCOTIC/OPIOD MEDICATIONS INCLUDES BUT IS NOT LIMITED TO RISK OF DEPENDANCE/DEVELOPMENT OF ADDICTION, MOOD DISTURBANCE AND DEPRESSION, OSTEOPOROSIS, HORMONAL AND LABIDAL CHANGES, RESPIRATORY DEPRESSION AND . PATIENT IS ADVISED NOT TO DRIVE OR DRINK ALCOHOL WHILE ON THESE MEDICATIONS. DISPOSITION & COMMUNICATION FOLLOW UP 3 MONTHS (REASON: MED MGMNT/LEFT SHOULDER) ELECTRONICALLY SIGNED BY ASTRID BRUCE ON 08/26/2020 AT 11:26 AM EDT DISCLAIMER : THIS IS A VISIT SUMMARY EXTRACTED FROM THE [facility] CHART. IT IS NOT A COPY OF THE [facility] PROGRESS NOTE. PAULY
== END ==
LOC: M PAIN 09:00
PROVIDERS: ATTEND Nurse Practitioner Family
DX: M54.2 Cervicalgia (principal); M96.1 Postlaminectomy syndrome, not elsewhere classified; I10 Essential (primary) hypertension; E55.9 Vitamin D deficiency, unspecified; Z88.4 Allergy status to anesthetic agent; Z88.8 Allergy status to other drugs, medicaments and biological substances; Z79.899 Other long term (current) drug therapy

== ENCOUNTER → 2020-11-22 | Outpatient (CLI) | payer MEDICARE, BC, OTHER ==
--- NOTE | 2020-11-26 07:22 | ECWPNPC ---
PATIENT NAME: ALFONSO MAR : 1950 GENDER: FEMALE VISIT DATE: 11/22/2020 DISCHARGE DATE: 11/22/20 0950 VISIT LOCKED DATE TIME: PHYSICIAN: INGRID LANDRY RESOURCE: INGRID LANDRY REASON FOR APPOINTMENT 1. MED MANAGEMENT/NECK PAIN HISTORY OF PRESENT ILLNESS GENERAL: HERE FOR FOLLOW-UP OF CHRONIC NECK PAIN. CURRENTLY USING TRAMADOL 50 MG 1 TABLET 3 TIMES DAILY AND AMITRIPTYLINE. FINDS MEDICATION SOMEWHAT EFFECTIVE. TODAY WE TALKED ABOUT DISCONTINUING TRAMADOL SLOWLY OVER THE COURSE OF 30 DAYS BECAUSE SHE WOULD LIKE TO TRY TO BE OFF OF THIS MEDICATION. DISCUSSED USING TYLENOL/IBUPROFEN TABLET [id number] NEEDED FOR SEVERE PAIN EPISODES INSTEAD OF TRAMADOL. OVERALL DOING WELL.- -. FALL RISK SCREENING: SCREENING :NO FALLS REPORTED IN THE LAST YEAR PAIN SCREENING: PATIENT HAS A COMPLAINT OF ACUTE OR CHRONIC PAIN :YES LOCATION OF PAIN:LEFT SHOULDER, LOW BACK INTENSITY OF PAIN (SCALE OF 1 TO 10):2 WHAT DOES YOUR PAIN FEEL LIKE:BURNING, INTERMITTENT DURATION:PERIODIC, INTERMITTENT PAIN IS INCREASED BY:ACTIVITIES, PROLONGED STANDING PAIN IS DECREASED BY:USE OF PAIN MEDICATIONS, OTHERS NOT MOVING TREATMENT/MEDICATIONS USED TO MANAGE PAIN:NSAIDS, OPIOIDS, PHYSICAL THERAPY, ACCUPUNCTURE INJECTIONS LEVEL OF RELIEF FROM PAIN TREATMENTS IN THE PAST:75% NURSING NOTE: - -. PAIN CENTER INTAKE QUESTIONS: DO YOU HAVE A HISTORY OF MRSA? :NO DO YOU TAKE A BLOOD THINNERS? :NO DO YOU HAVE ANY BLEEDING DISORDERS? :NO ANY NEW NUMBNESS OR WEAKNESS IN YOUR LEGS OR ARMS? :NO ANY PACEMAKER,DEFIBRILLATOR, OR DORSAL COLUMN STIMULATOR? :NO DO YOU HAVE ANY RASHES OR OPEN SORES? :NO ARE YOU ALLERGIC TO IV DYE? :NO ARE YOU DIABETIC? :NO ANY NEW PROBLEMS WITH YOUR MEDICATIONS? :YES LIDOACANE AND LYRICIA HAVE YOU RECEIVED A VACCINE IN THE PAST 30 DAYS? :NO DO YOU PLAN TO RECEIVE A VACCINE IN THE NEXT 21 DAYS? :YES IF SO WHAT VACCINE AND WHEN? SHINGLES VACCINATION 11/22/2020 DO YOU NEED ANY PRESCRIPTION? :YES TRAMADOL- [facility] [place] AMITRIPTYLINE- [facility] MAIL ORDER DO YOU TAKE ANY IMMUNOSUPPRESSIVE MEDICATIONS? :NO IS THERE A CHANCE YOU COULD BE ? :NO ARE YOU BREAST FEEDING? :NO CURRENT MEDICATIONS TAKING HYDROCHLOROTHIAZIDE 25 MG TABLET 1 TABLET ORALLY ONCE A DAY TAKING ATENOLOL 50 50MG TABLET ORAL BID TAKING VITAMIN D _ TABLET 5000 UNITS ORALLY ONCE A DAY TAKING BIOTIN 5 MG CAPSULE 1 CAPSULE ORALLY ONCE A DAY TAKING MULTIVITAMIN ADULT - TABLET DIRECTED ORALLY DAILY TAKING TRAMADOL HCL 50 MG TABLET 1 TABLET NEEDED ORALLY FOR PAIN EVERY 8 HOURS WHEN NECESSARY FOR SEVERE PAIN. MDD A 3 TAKING AMITRIPTYLINE HCL 50 MG TABLET 1 TABLET ORALLY QHS TAKING METAXALONE 800 MG TABLET 1 TABLET ORALLY TWICE A DAY NOT-TAKING GABAPENTIN 300 MG CAPSULE 1 CAPSULE ORALLY ONCE A DAY AT BEDTIME, NOTES: CHANGES HOW SHE TAKES NOT-TAKING NAPROXEN 500 MG TABLET 1 TAB ORALLY EVERY 12 HRS MEDICATION LIST REVIEWED AND RECONCILED WITH THE PATIENT PAST MEDICAL HISTORY HTN LEFT SHOULDER PAIN BACK PAIN SCIATIC RIGHT LEG VIT D DEF. NERVE PAIN IN RIGHT LEG ADULT ONSET SCOLIOSIS ALLERGIES LIDOCAINE: RAPID HEARTBEAT - SIDE EFFECTS LYRICA: MENTAL CONFUSION - SIDE EFFECTS SURGICAL HISTORY SPINAL FUSION WRIST SURGERY - RELEASE-LEFT 09/2018 FAMILY HISTORY FATHER: , DIAGNOSED WITH UNSPECIFIED CEREBRAL ARTERY OCCLUSION WITH CEREBRAL INFARCTION MOTHER: , ARTHRITIS, OTHER SPECIFIED CONDITIONS INFLUENCING HEALTH STATUS SIBLINGS: BROTHER-ALZHEIMERS, ARTHRITIS HIP 1 BROTHER(S) , 4 SISTER(S) . 1 SON(S) , 1 DAUGHTER(S) - HEALTHY. MOTHER - HIP REPLACEMENTSISTER - BREAST CANCER, BOTH SISTERS-ARTHRITIS, HIP REPLACEMENTSBROTHER DIAGNOSED WITH ALZHEIMER'S. SOCIAL HISTORY GENERAL: TOBACCO USE ARE YOU A:NONSMOKER LATEX QUESTIONNAIRE LATEX ALLERGY : HAVE YOU EVER DEVELOPED ANY TYPE OF REACTION AFTER HANDLING LATEX PRODUCTS SUCH RUBBER GLOVES, CONDOMS, DIAPHRAGMS, BALLOONS, SOCKS, OR UNDERWEAR?NO LATEX ALLERGY : HAVE YOU EVER DEVELOPED ANY TYPE OF REACTION DURING OR AFTER DENTAL APPOINTMENT, VAGINAL/RECTAL EXAMINATION, SURGICAL PROCEDURE, OR ANY OTHER EXPOSURE?NO LATEX RISK : HAVE YOU EVER HAD ANY DIFFICULTY BREATHING OR HIVES AFTER EATING OR HANDLING ANY FRUITS, OR VEGETABLES; SUCH KIWI, BANANAS, STONE FRUITS, OR CHESTNUTSNO LATEX RISK : DO YOU HAVE A PREVIOUS PERSONAL HISTORY OF MORE THAN NINE SURGERIES, SPINA BIFIDA, OR REPEATED CATHERIZATIONS? NO LATEX RISK : ARE YOU FREQUENTLY EXPOSED TO LATEX PRODUCTS IN YOUR OCCUPATION?NO DATE ASKED : 08/22/2020 ALCOHOL SCREENING DID YOU HAVE A DRINK CONTAINING ALCOHOL IN THE PAST YEAR?YES HOW OFTEN DID YOU HAVE SIX OR MORE DRINKS ON ONE OCCASION IN THE PAST YEAR?NEVER (0 POINTS) HOW MANY DRINKS DID YOU HAVE ON A TYPICAL DAY WHEN YOU WERE DRINKING IN THE PAST YEAR?1 OR 2 (0 POINTS) HOW OFTEN DID YOU HAVE A DRINK CONTAINING ALCOHOL IN THE PAST YEAR?MONTHLY OR LESS (1 POINT) POINTS1 INTERPRETATIONNEGATIVE RECREATIONAL DRUG USE DRUG USE?NO CAFFEINE CAFFEINE USE?YES HOW OFTEN AND HOW MUCH? 1 CUP COFFEE/DAILY MANDAEN [id number] LATTER-DAY LANGUAGE LANGUAGES SPOKEN:UKRAINIAN EDUCATION LEVEL OF EDUCATION:FINISHED [employer] DEGREE LEARNING BARRIERS / SPECIAL NEEDS CHANGE FROM LAST VISIT?NO BARRIERS TO LEARNING?NO HEARING IMPAIRED?NO VISION IMPAIRED?YES :CORRECTIVE LENSES COGNITIVELY IMPAIRED?NO READINESS TO LEARN?YES LEARNING PREFERENCES?NO LEARNING CAPABILITIES PRESENT?YES EMOTIONAL BARRIERS?NO SPECIAL DEVICES?NO ROOM SERVICE BELLHOP NEEDED?NO OCCUPATION: RETIRED. DIET: REGULAR. EXERCISE: TRIES TO BE ACTIVE.. PAIN CLINIC PFS, CLERGY, PUBLIC HEALTH REFERRALS PFS REFERRAL NEEDED?NO CLERGY REFERRAL NEEDED?NO PUBLIC HEALTH REFERRAL NEEDED?NO WAS THE PROVIDER NOTIFIED OF ANY PERTINENT INFO? N/A HAS THE PATIENT BEEN EDUCATED REGARDING HIS/HER PLAN OF CARE?YES HAS THE PATIENT BEEN EDUCATED REGARDING PAIN, THE RISK FOR PAIN, THE IMPORTANCE OF EFFECTIVE PAIN MANAGEMENT, AND THE PAIN ASSESSMENT PROCESS?YES ADVANCE DIRECTIVE ADVANCE DIRECTIVE DISCUSSED WITH PATIENT:YES HCP - CARLOS WASHINGTON (DAUGHTER) HOSPITALIZATION/MAJOR DIAGNOSTIC PROCEDURE SURGERY RELATED CHILD REVIEW OF SYSTEMS CONSTITUTIONAL: ANY RECENT FEVER NO . CHILLS NO . WEIGHT CHANGE OF UNKNOWN REASONS NO . GASTROENTEROLOGY: NEW UNEXPLAINABLE CHANGES IN BOWEL CONTROL NO . CONSTIPATION NO . GENITOURINARY: ANY NEW CHANGE IN BLADDER CONTROL? NO . NEUROLOGY: NEW ONSET DIZZINESS OR NEUROLOGICAL CHANGES NOT MENTIONED NO . NEW NUMBNESS OR PAIN PATTERNS NOT MENTIONED AND PERTINENT TO TODAY'S VISIT NO . CARDIOLOGY: NEW CHEST PRESSURE NO . NEW CHEST PAIN NO . RESPIRATORY: UNEXPLAINABLE COUGH NO . NEW SHORTNESS OF BREATH NO . VITAL SIGNS WT 174.6 LBS, HT 64 IN, BMI 29.97 INDEX, BP 126/76 MM HG, HR 73 /MIN, RR 18 /MIN, TEMP 97.8 F, OXYGEN SAT % 97, SAFE IN ENV? (Y/N) YES, REVIEWED BY: VITAL SIGNS OBATAINED AND PROVIDED TO PROVIDER. EXAMINATION GENERAL EXAMINATION: GENERAL AWAKE,ALERT ,PLEASANT . PSYCH AFFECT NORMAL . LUNGS: LUNG LITTLEJOHN ARE CLEAR TO AUSCULTATION BILATERALLY. GOOD MOVEMENT OF AIR . HEART: S1, S2 IN A REGULAR RATE AND RHYTHM. NO SIGNIFICANT MURMURS, RUBS OR GALLOPS NOTED . ASSESSMENTS CERVICALGIA - M54.2 (PRIMARY) POST LAMINECTOMY SYNDROME - M96.1 CHRONIC PRESCRIPTION OPIATE USE - Z79.891 TREATMENT CERVICALGIA NOTES: ADVISED PATIENT TO DECREASE TRAMADOL BY A HALF A TABLET EVERY 10 DAYS. USE IBUPROFEN/ACETAMINOPHEN COMBINATION TABLET NEEDED FOR SEVERE PAIN EPISODES PER [id number] INSTRUCTIONS. FOLLOW-UP IS SCHEDULED IN 3 MONTHS. , ISTOP REGISTRY REVIEWED AND DEMONSTRATES COMPLLIANCE. RECENT URINE TOXICOLOGY REVIEWED. NO UNAUTHORIZED MEDICATIONS. NO ILLICIT SUBSTANCES AND PRESCRIBED MEDICATIONS WERE PRESENT. URINE TOXICOLOGY TODAY. PROCEDURE CODES FA211 ESTABILISHED PATIENT [facility] FACILITY CHARGE DISPOSITION & COMMUNICATION FOLLOW UP 3 MONTHS (REASON: CERVICALGIA/CHECK ON DISCONTINUING TRAMADOL/REVIEW URINE TOX) ELECTRONICALLY SIGNED BY ASTRID BRUCE ON 11/25/2020 AT 09:34 AM EST DISCLAIMER : THIS IS A VISIT SUMMARY EXTRACTED FROM THE [employer] CHART. IT IS NOT A COPY OF THE [employer] PROGRESS NOTE. PAULY
== END ==
LOC: M PAIN 09:15
PROVIDERS: ATTEND Nurse Practitioner Family
DX: M54.2 Cervicalgia (principal); M96.1 Postlaminectomy syndrome, not elsewhere classified; E55.9 Vitamin D deficiency, unspecified; Z88.4 Allergy status to anesthetic agent; Z88.8 Allergy status to other drugs, medicaments and biological substances; Z79.899 Other long term (current) drug therapy

== ENCOUNTER → 2021-02-20 | Outpatient (CLI) | payer MEDICARE, BC, OTHER ==
--- NOTE | 2021-02-21 05:17 | ECWPNPC ---
PATIENT NAME: ALFONSO MAR : 1950 GENDER: FEMALE VISIT DATE: 02/20/2021 DISCHARGE DATE: 02/20/21937 VISIT LOCKED DATE TIME: PHYSICIAN: INGRID LANDRY RESOURCE: INGRID LANDRY REASON FOR APPOINTMENT 1. CERVICALGIA/CHECK ON DISCONTINUING TRAMADOL/REVIEW URINE TOX HISTORY OF PRESENT ILLNESS GENERAL: HERE FOR FOLLOW-UP AND MEDICATION MANAGEMENT FOR CHRONIC NECK PAIN. AT OUR LAST VISIT WE DISCONTINUE TRAMADOL. SHE HAS BEEN DOING WELL WITH USE OF [id number] TYLENOL IBUPROFEN COMBINATION. CONTINUES ON AMITRIPTYLINE AND METAXALONE. OVERALL DOING WELL. REMAINING ACTIVE. -. FALL RISK SCREENING: SCREENING : NO FALLS REPORTED IN THE LAST YEAR. PAIN SCREENING: PATIENT HAS A COMPLAINT OF ACUTE OR CHRONIC PAIN :YES LOCATION OF PAIN:NECK, BOTH SHOULDERS INTENSITY OF PAIN (SCALE OF 1 TO 10):4 WHAT DOES YOUR PAIN FEEL LIKE:BURNING, INTERMITTENT DURATION:INTERMITTENT PAIN IS INCREASED BY:ACTIVITIES, PROLONGED STANDING PAIN IS DECREASED BY:USE OF PAIN MEDICATIONS NURSING NOTE: -. PAIN CENTER INTAKE QUESTIONS: DO YOU HAVE A HISTORY OF MRSA? :NO DO YOU TAKE A BLOOD THINNERS? :NO DO YOU HAVE ANY BLEEDING DISORDERS? :NO ANY NEW NUMBNESS OR WEAKNESS IN YOUR LEGS OR ARMS? :NO ANY PACEMAKER,DEFIBRILLATOR, OR DORSAL COLUMN STIMULATOR? :NO DO YOU HAVE ANY RASHES OR OPEN SORES? :NO ARE YOU ALLERGIC TO IV DYE? :NO ARE YOU DIABETIC? :NO ANY NEW PROBLEMS WITH YOUR MEDICATIONS? :NO HAVE YOU RECEIVED A VACCINE IN THE PAST 30 DAYS? :YES IF SO WHAT VACCINE AND WHEN? SECOND DOSE OF COVID VACCINATION RECEIVED ON 01/28/2021 DO YOU PLAN TO RECEIVE A VACCINE IN THE NEXT 21 DAYS? :NO DO YOU NEED ANY PRESCRIPTION? :YES METAXALONE ([facility]), AMITRIPTYLINE ([facility]) DO YOU TAKE ANY IMMUNOSUPPRESSIVE MEDICATIONS? :NO IS THERE A CHANCE YOU COULD BE ? :NO ARE YOU BREAST FEEDING? :NO CURRENT MEDICATIONS TAKING HYDROCHLOROTHIAZIDE 25 MG TABLET 1 TABLET ORALLY ONCE A DAY TAKING ATENOLOL 50 50MG TABLET ORAL BID TAKING VITAMIN D _ TABLET 5000 UNITS ORALLY ONCE A DAY TAKING BIOTIN 5 MG CAPSULE 1 CAPSULE ORALLY ONCE A DAY TAKING MULTIVITAMIN ADULT - TABLET DIRECTED ORALLY DAILY TAKING METAXALONE 800 MG TABLET 1 TABLET ORALLY TWICE A DAY TAKING AMITRIPTYLINE HCL 50 MG TABLET 1 TABLET ORALLY QHS TAKING GABAPENTIN 300 MG CAPSULE 1 CAPSULE ORALLY ONCE A DAY AT BEDTIME, NOTES: CHANGES HOW SHE TAKES-USUALLY EVERY FEW WEEKS NOT-TAKING TRAMADOL HCL 50 MG TABLET 1/2 TO 1 TAB DIRECTED THEN DISCONTINUE ORALLY FOR PAIN EVERY 8 HOURS WHEN NECESSARY FOR SEVERE PAIN. MDD A 3 NOT-TAKING NAPROXEN 500 MG TABLET 1 TAB ORALLY EVERY 12 HRS MEDICATION LIST REVIEWED AND RECONCILED WITH THE PATIENT PAST MEDICAL HISTORY HTN LEFT SHOULDER PAIN BACK PAIN SCIATIC RIGHT LEG VIT D DEF. NERVE PAIN IN RIGHT LEG ADULT ONSET SCOLIOSIS ALLERGIES LIDOCAINE: RAPID HEARTBEAT - SIDE EFFECTS LYRICA: MENTAL CONFUSION - SIDE EFFECTS SOCIAL HISTORY GENERAL: TOBACCO USE ARE YOU A:NONSMOKER LATEX QUESTIONNAIRE LATEX ALLERGY : HAVE YOU EVER DEVELOPED ANY TYPE OF REACTION AFTER HANDLING LATEX PRODUCTS SUCH RUBBER GLOVES, CONDOMS, DIAPHRAGMS, BALLOONS, SOCKS, OR UNDERWEAR?NO LATEX ALLERGY : HAVE YOU EVER DEVELOPED ANY TYPE OF REACTION DURING OR AFTER DENTAL APPOINTMENT, VAGINAL/RECTAL EXAMINATION, SURGICAL PROCEDURE, OR ANY OTHER EXPOSURE?NO LATEX RISK : HAVE YOU EVER HAD ANY DIFFICULTY BREATHING OR HIVES AFTER EATING OR HANDLING ANY FRUITS, OR VEGETABLES; SUCH KIWI, BANANAS, STONE FRUITS, OR CHESTNUTSNO LATEX RISK : DO YOU HAVE A PREVIOUS PERSONAL HISTORY OF MORE THAN NINE SURGERIES, SPINA BIFIDA, OR REPEATED CATHERIZATIONS? NO LATEX RISK : ARE YOU FREQUENTLY EXPOSED TO LATEX PRODUCTS IN YOUR OCCUPATION?NO DATE ASKED : 02/20/2021 ALCOHOL USE: NO. ALCOHOL SCREENING DID YOU HAVE A DRINK CONTAINING ALCOHOL IN THE PAST YEAR?YES HOW OFTEN DID YOU HAVE SIX OR MORE DRINKS ON ONE OCCASION IN THE PAST YEAR?NEVER (0 POINTS) HOW MANY DRINKS DID YOU HAVE ON A TYPICAL DAY WHEN YOU WERE DRINKING IN THE PAST YEAR?1 OR 2 (0 POINTS) HOW OFTEN DID YOU HAVE A DRINK CONTAINING ALCOHOL IN THE PAST YEAR?MONTHLY OR LESS (1 POINT) POINTS1 INTERPRETATIONNEGATIVE RECREATIONAL DRUG USE DRUG USE?NO CAFFEINE CAFFEINE USE?YES HOW OFTEN AND HOW MUCH? 1 CUP COFFEE/DAILY LATTER DAY [id number] SCIENTOLOGIST LANGUAGE LANGUAGES SPOKEN:[place] EDUCATION LEVEL OF EDUCATION:FINISHED [employer] DEGREE LEARNING BARRIERS / SPECIAL NEEDS CHANGE FROM LAST VISIT?NO BARRIERS TO LEARNING?NO HEARING IMPAIRED?NO VISION IMPAIRED?YES :CORRECTIVE LENSES COGNITIVELY IMPAIRED?NO READINESS TO LEARN?YES LEARNING PREFERENCES?NO LEARNING CAPABILITIES PRESENT?YES EMOTIONAL BARRIERS?NO SPECIAL DEVICES?NO NEWS PHOTOGRAPHER NEEDED?NO OCCUPATION: RETIRED. DIET: REGULAR. EXERCISE: TRIES TO BE ACTIVE.. - PFS REFERRAL NEEDED?NO CLERGY REFERRAL NEEDED?NO PUBLIC HEALTH REFERRAL NEEDED?NO WAS THE PROVIDER NOTIFIED OF ANY PERTINENT INFO? N/A HAS THE PATIENT BEEN EDUCATED REGARDING HIS/HER PLAN OF CARE?YES HAS THE PATIENT BEEN EDUCATED REGARDING PAIN, THE RISK FOR PAIN, THE IMPORTANCE OF EFFECTIVE PAIN MANAGEMENT, AND THE PAIN ASSESSMENT PROCESS?YES ADVANCE DIRECTIVE ADVANCE DIRECTIVE DISCUSSED WITH PATIENT:YES HCP - CARLOS WASHINGTON (DAUGHTER) REVIEW OF SYSTEMS CONSTITUTIONAL: ANY RECENT FEVER NO . CHILLS NO . WEIGHT CHANGE OF UNKNOWN REASONS NO . GASTROENTEROLOGY: NEW UNEXPLAINABLE CHANGES IN BOWEL CONTROL NO . CONSTIPATION NO . GENITOURINARY: ANY NEW CHANGE IN BLADDER CONTROL? NO . NEUROLOGY: NEW ONSET DIZZINESS OR NEUROLOGICAL CHANGES NOT MENTIONED NO . NEW NUMBNESS OR PAIN PATTERNS NOT MENTIONED AND PERTINENT TO TODAY'S VISIT NO . CARDIOLOGY: NEW CHEST PRESSURE NO . PATIENT DENIES NO . RESPIRATORY: UNEXPLAINABLE COUGH NO . NEW SHORTNESS OF BREATH NO . VITAL SIGNS WT 169.8 LBS, HT 64 IN, BMI 29.14 INDEX, BP 120/58 MM HG, HR 76 /MIN, RR 18 /MIN, TEMP 97.8 F, OXYGEN SAT % 96%, SAFE IN ENV? (Y/N) YES, NA INITIALS AW 0853, REVIEWED BY: RAFAT WATT MA. EXAMINATION GENERAL EXAMINATION: GENERAL AWAKE,ALERT ,PLEASANT . PSYCH AFFECT NORMAL . LUNGS: LUNG LITTLEJOHN ARE CLEAR TO AUSCULTATION BILATERALLY. GOOD MOVEMENT OF AIR . HEART: S1, S2 IN A REGULAR RATE AND RHYTHM. NO SIGNIFICANT MURMURS, RUBS OR GALLOPS NOTED . ASSESSMENTS CERVICALGIA - M54.2 (PRIMARY) TREATMENT CERVICALGIA REFILL METAXALONE TABLET, 800 MG, 1 TABLET, ORALLY, TWICE A DAY, 90 DAY(S), 180 TABLET, REFILLS 0 REFILL AMITRIPTYLINE HCL TABLET, 50 MG, 1 TABLET, ORALLY, QHS, 90 DAY(S), 90, REFILLS 0 PROCEDURE CODES FA211 ESTABILISHED PATIENT [facility] FACILITY CHARGE DISPOSITION & COMMUNICATION FOLLOW UP 4 MONTHS (REASON: MED MGMNT) ELECTRONICALLY SIGNED BY ASTRID BRUCE ON 02/20/2021 AT 08:39 PM EDT DISCLAIMER : THIS IS A VISIT SUMMARY EXTRACTED FROM THE [email or web address] CHART. IT IS NOT A COPY OF THE [email or web address] PROGRESS NOTE. PAULY
== END ==
LOC: M PAIN 09:00
PROVIDERS: ATTEND Nurse Practitioner Family
DX: M54.2 Cervicalgia (principal); G89.29 Other chronic pain; E55.9 Vitamin D deficiency, unspecified; Z88.4 Allergy status to anesthetic agent; Z88.8 Allergy status to other drugs, medicaments and biological substances; Z79.899 Other long term (current) drug therapy

== ENCOUNTER → 2021-08-07 | Outpatient (CLI) | payer MEDICARE, BC, OTHER | LOC: M PAIN 09:45 | PROVIDERS: ATTEND Anesthesiology | DX: M54.2 Cervicalgia (principal); M79.18 Myalgia, other site; E55.9 Vitamin D deficiency, unspecified; Z79.899 Other long term (current) drug therapy ==